=== PATIENT | female | born 1990 | race Caucasian/White ===

== ENCOUNTER 2016-07-22 12:33 | Emergency (ER) | payer OTHER ==
[~2016-07-22] VITALS: Ht 157.5 cm; Wt 60.5 kg
[~2016-07-22 12:33] MED LIST: ACET325T45 PO; ALBU8.5H3 INH; AZIT250T94 PO; BENZ100C70 PO; CETI10CA PO; CIPR500T4 PO; FLUT9.9S NASAL; IBUP-1542 PO; IBUP200C PO; NITR-58 PO; PHEN-537 PO; albuter
[2016-07-22 12:56] VITALS: Ht 157.5 cm; Wt 60.5 kg
[2016-07-22 13:41] LABS: BASOPHILS % 0.5 % (0.0-2.0); EOSINOPHILS # 0.1 10^3/ul (0.0-0.5); EOSINOPHILS % 1.6 % (0.0-7.0); HEMATOCRIT 40.2 % (37.0-47.0); HEMOGLOBIN 13.4 g/dl (12.0-16.0); LYMPHOCYTES # 1.8 10^3/ul (0.8-2.9); MEAN CORPUSCULAR HEMOGLOBIN 30.4 pg (29.0-33.0); MEAN CORPUSCULAR HGB CONC 33.5 g/dl (32.0-37.0); MEAN CORPUSCULAR VOLUME 90.8 fl (82.0-101.0); MONOCYTE # 0.7 10^3/ul (0.3-0.9); MONOCYTES % 9.9 % (0.0-11.0); NEUTROPHIL # 4.6 10^3/ul (1.6-7.5); PLATELET COUNT 323 10^3/UL (140-440); RED BLOOD COUNT 4.42 10^6/ul (4.20-5.40); UNCORRECTED WBC 7.3 10^3/ul (4.8-10.8); WHITE BLOOD COUNT 7.3 10^3/ul (4.8-10.8)
[2016-07-22 13:41] LABS: ADD UMIC YES; URINE BILIRUBIN (Dip) NEGATIVE (NEGATIVE); URINE BLOOD (Dip) NEGATIVE (NEGATIVE); URINE COLOR LT. YELLOW (YELLOW); URINE GLUCOSE (Dip) NEGATIVE (NEGATIVE); URINE KETONES (Dip) NEGATIVE (NEGATIVE); URINE LEUKOCYTE ESTERASE (Dip) 1+ (NEGATIVE); URINE NITRITE (Dip) NEGATIVE (NEGATIVE); URINE TOTAL PROTEIN (Dip) TRACE (NEGATIVE); URINE UROBILINOGEN (Dip) 0.2 E.U./dL (0.1-1.0)
[2016-07-22 13:44] LABS: CONDITION 1
[2016-07-22 13:55] LABS: BACTERIA,URINE FEW; SQUAMOUS EPITHELIAL CELL,UR FEW; URINE RBCS 0-2 /HPF (0)
[2016-07-22] MEDS ORDERED: PRENAT PO (15:44)
--- NOTE | 2016-07-22 15:47 | ERD ---
ER Documentation Chief Complaint Date/Time DATE: 07/22/16 TIME: 15:46 Chief Complaint ABD CRAMPING X1 WEEK. TOOK "PLAN B" ON 07/17 HPI This 26-year-old female complains of lower abdominal intermittent cramping for last week. Patient gives a history of last menstrual period approximate 6 weeks ago. Approximately 1 week ago she took Plan B for unprotected intercourse but then had a positive test shortly thereafter. She believes she was prior to taking the Plan B but did not know it. She denies any vaginal bleeding, fevers, vomiting. She is a G2 para 0. ROS All systems reviewed and are negative except as per history of present illness. Medications Home Meds Active Scripts Multivit/Min/Fol Ac/Iron/Pren* ( S*) 1 Tab Tab, 1 TAB PO DAILY, #100 TAB Prov:JOHN VALLES MD 07/22/16 Ibuprofen* (Motrin*) 600 Mg Tab, 600 MG PO Q6H Y for PAIN AND OR ELEVATED TEMP, #30 TAB Prov:REESE ALEXANDER NP 06/13/16 Cetirizine Hcl* (Zyrtec*) 10 Mg Capsule, 10 MG PO DAILY, #30 TAB.CHEW Prov:REESE ALEXANDER NP 06/13/16 Benzonatate* (Tessalon Perle*) 100 Mg Capsule, 100 MG PO Q8H Y for COUGH, #30 CAP Prov:REESE ALEXANDER NP 06/13/16 Fluticasone Propionate (Flonase Allergy Relief) 9.9 Ml [place].susp, 1 SPRAY NASAL BID, #1 BOTTLE TO EACH NOSTRIL Prov:REESE ALEXANDER NP 06/13/16 Ibuprofen* (Motrin*) 600 Mg Tab, 600 MG PO Q6, #20 TAB Prov:SHAINA SANDOVAL NP 05/07/16 Ibuprofen* (Motrin*) 600 Mg Tab, 600 MG PO Q6, #20 TAB Prov:ANGEL BYRD PA-C 02/11/16 Phenazopyridine Hcl* (Pyridium*) 100 Mg Tab, 100 MG PO TID Y for URINARY PAIN, # 6 TAB Prov:MADHAVI LAW PA-C 01/17/16 Nitrofurantoin Monohyd Macrocr* (Macrobid*) 100 Mg Capsr, 100 MG PO BID for 5 Days, CAP Prov:MADHAVI LAW PA-C 01/17/16 Ciprofloxacin Hcl* (Ciprofloxacin Hcl*) 500 Mg Tablet, 500 MG PO BID for 3 Days , TAB Prov:ANGEL BYRD PA-C 08/08/15 Albuterol Sulfate* (Proair HFA*) 8.5 Gm Hfa.aer.ad, 2 PUFF INH Q4, #1 INHALER Prov:ANGEL BYRD PA-C 08/08/15 [albuter] No Conflict Check Prov:ANGEL BYRD PA-C 08/08/15 Azithromycin* (Zithromax*) 250 Mg Tablet, 250 MG PO .ZPACK DIRECTED, #6 TAB TAKE 500 MG (2 TABS) THE FIRST DAY THEN 250 MG (1 TAB) DAYS 2-5 Prov:ANGEL BYRD PA-C 08/08/15 Reported Medications Ibuprofen* (Ibuprofen*) 200 Mg Capsule, 200 MG PO QID Y for FEVER, CAP 06/29/14 Acetaminophen* (Acetaminophen*) 325 Mg Tablet, 325 MG PO Q4H Y for FEVER, TAB 06/29/14 Allergies Allergies: Coded Allergies: No Known Allergies (Verified Allergy, Mild, 06/13/16) PMhx/Soc History of Surgery: Yes (appendectomy) Anesthesia Reaction: No Hx Neurological Disorder: No Hx Respiratory Disorders: No Hx Cardiac Disorders: No Hx Psychiatric Problems: No Hx Miscellaneous Medical Probl: No Hx Alcohol Use: No Hx Substance Use: No Hx Tobacco Use: No Physical Exam Vitals Vital Signs Date Time Temp Pulse Resp B/P Pulse Ox O2 Delivery O2 Flow Rate FiO2 07/22/16 12:56 98.6 75 16 108/70 99 Physical Exam Const: [] Alert, [id number]. Head: Atraumatic Eyes: Normal Conjunctiva ENT: Normal External Ears, Nose and Mouth. Neck: Full range of motion..~ No meningismus. Resp: Clear to auscultation bilaterally Cardio: Regular rate and rhythm, no murmurs Abd: Soft, non tender, non distended. Normal bowel sounds Skin: No petechiae or rashes Back: No midline or flank tenderness Ext: No cyanosis, or edema Neur: Awake and alert Psych: Normal Mood and Affect Result Diagram: 07/22/16 1328 Results 24 hrs Laboratory Tests Test 07/22/16 13:28 07/22/16 13:30 Basophils # 0.010^3/ul Basophils % 0.5% Beta HCG, Quantitative 6589.6mIU/ml Blood Morphology Comment Eosinophils # 0.110^3/ul Eosinophils % 1.6% Hematocrit 40.2% Hemoglobin 13.4g/dl Lymphocytes # 1.810^3/ul Lymphocytes % 25.0% Mean Corpuscular Hemoglobin 30.4pg Mean Corpuscular Hemoglobin Concent 33.5g/dl Mean Corpuscular Volume 90.8fl Mean Platelet Volume 7.0fl Monocytes # 0.710^3/ul Monocytes % 9.9% Neutrophils # 4.610^3/ul Neutrophils % 63.0% Nucleated Red Blood Cells # 0.010^3/ul Nucleated Red Blood Cells % 0.0/100WBC Platelet Count 68140^3/UL Red Blood Count 4.4210^6/ul Red Cell Distribution Width 13.0% White Blood Count 7.310^3/ul Urine Bacteria FEW Urine Bilirubin NEGATIVE Urine Clarity CLEAR Urine Color LT. YELLOW Urine Glucose NEGATIVE% Urine Hemoglobin NEGATIVE Urine Ketones NEGATIVE Urine Leukocyte Esterase 1+ Urine Microscopic RBC 0-2/HPF Urine Microscopic WBC 2-5/HPF Urine Nitrite NEGATIVE Urine Specific [place] 1.020 Urine Squamous Epithelial Cells FEW Urine Total Protein TRACE Urine Urobilinogen 0.2 E.U./dL Urine pH 7.5 Procedures/MDM Pelvic ultrasound shows approximately 5 week intrauterine gestational sac without pole or yolk sac and no heart tones. There is no evidence of adnexal . There is small bilateral ovarian cysts. Quantitative hCG is approximately 6000. Patient is Rh+. Patient has trace leukocytes on urine but only few bacteria. Patient was stable amatory throughout the ER course. Patient has early without visible heart tones. This may be due to early or early failed . There is no current signs or symptoms of ectopic or signs or symptoms to suggest acute abdomen, additional causes of lower abdominal cramping. Patient is advised to follow-up with OB or primary doctor this week otherwise she may repeat hormone level 2 days to evaluate . Patient should return sooner for worsening pain, bleeding, fevers, new worsening symptoms. Departure Diagnosis: Primary Impression: Abdominal pain Abdominal location: lower abdomen, unspecified Qualified Code: R10.30 - Lower abdominal pain Condition: Stable Patient Instructions: Abdominal Pain, Early Referrals: [facility] [address] [facility] [address] [place] [address] OFFICE FAX , [facility] [address] [place] [address] [facility] [address] [place] [address] [address] REAGAN, [facility] [address] [facility], [address], [facility] [address] [address] COLLIER, [facility] [address] [place] [address] [facility] [address] [place] [address] [facility] [address] - [place]N [address] [facility]. [address] [address] [address] [place], [place] [address] [facility]. [address], [facility] [address] [address] [facility] [address] [place], [place] [id number] Additional Instructions: There is a small sac approximately 5 weeks gestation visible but no heart rate visible. This may be due to early but should be monitored closely. Recommend recheck with this week consider a repeat laboratory work in 2 days. Return sooner for fevers, bleeding, new or worsening symptoms JOHN VALLES MD Jul 22, 2016 15:47
--- NOTE | 2016-07-22 19:19 | RADRPT ---
PROCEDURE: US OB. CLINICAL INDICATION: , vaginal bleeding and cramping TECHNIQUE: Transabdominal and transvaginal imaging of the pelvis was performed. Images are review ed on a high-resolution PACS workstation. COMPARISON: None available FINDINGS: Anechoic collection is identified within the endometrial cavity measuring 8 x 4 x 5 mm, possibly ear ly gestational sac. No structures are identified at this time. Collection size corresponds to a 5 weeks 1 day gestational age. Right ovary demonstrates multiple simple cysts measuring up to 3.7 cm. Left ovary is unremarkable. No ovarian torsion or solid adnexal mass is seen. Nonspecific mild amount of pelvic free fluid is present. IMPRESSION: 1. Possible early intrauterine gestational sac, as above. Viability cannot be confirmed at this ti me. Continued ultrasound follow-up is recommended. 2. Right ovary demonstrates simple cysts measuring up to 3.7 cm. 3. Nonspecific mild amount of pelvic free fluid is present. 4. No gross sonographic evidence to indicate ectopic gestation is seen at this time. RPTAT: QQ .Quincy Saha MD, MD Date Time Electronically viewed and signed by .Quincy Saha MD, on 07/22/2016 15:18 .R/
== END 2016-07-22 16:23 | disposition home or self-care (01) ==
LOC: FTE 12:33
DX: O26.891 Other specified pregnancy related conditions, first trimester (principal); R10.30 Lower abdominal pain, unspecified; Z3A.01 Less than 8 weeks gestation of pregnancy
CPT/HCPCS: 36415; 76801; 76817; 81001; 81003; 84702; 85025; 86900; 86901; Z7502

== ENCOUNTER 2016-08-16 10:33 | Emergency (ER) | payer OTHER ==
[~2016-08-16] VITALS: Wt 63.5 kg
[~2016-08-16 10:33] MED LIST changes: +PRENAT PO
[2016-08-16] MEDS ORDERED: ACETAMINOPHEN 325 MG TAB PO STA (11:23)
[2016-08-16] MEDS ORDERED: SOD CHLORIDE 0.9% 1,000 ML IV STA (11:23)
[2016-08-16] MEDS ORDERED: METOCLOPRAMIDE 10 MG INJ IV ONE (11:30)
[2016-08-16 12:13] LABS: BASOPHILS % 0.2 % (0.0-2.0); EOSINOPHILS % 0.6 % (0.0-7.0); HEMATOCRIT 36.4 % (37.0-47.0); HEMOGLOBIN 12.6 g/dl (12.0-16.0); LYMPHOCYTES # 1.9 10^3/ul (0.8-2.9); LYMPHOCYTES % 24.4 % (15.0-51.0); MEAN CORPUSCULAR HEMOGLOBIN 31.6 pg (29.0-33.0); MEAN CORPUSCULAR HGB CONC 34.7 g/dl (32.0-37.0); MEAN PLATELET VOLUME 7.7 fl (7.4-10.4); MONOCYTE # 0.7 10^3/ul (0.3-0.9); MONOCYTES % 8.7 % (0.0-11.0); NEUTROPHIL # 5.2 10^3/ul (1.6-7.5); NEUTROPHILS % 66.1 % (39.0-77.0); PLATELET COUNT 261 10^3/UL (140-440); RED CELL DISTRIBUTION WIDTH 12.5 % (11.5-14.5); UNCORRECTED WBC 7.9 10^3/ul (4.8-10.8); WHITE BLOOD COUNT 7.9 10^3/ul (4.8-10.8)
[2016-08-16 12:15] LABS: CONDITION 1
[2016-08-16 12:21] LABS: ADD UMIC YES; URINE BILIRUBIN (Dip) NEGATIVE (NEGATIVE); URINE BLOOD (Dip) TRACE (NEGATIVE); URINE COLOR LT. YELLOW (YELLOW); URINE GLUCOSE (Dip) NEGATIVE (NEGATIVE); URINE KETONES (Dip) NEGATIVE (NEGATIVE); URINE LEUKOCYTE ESTERASE (Dip) 1+ (NEGATIVE); URINE NITRITE (Dip) NEGATIVE (NEGATIVE); URINE TOTAL PROTEIN (Dip) NEGATIVE (NEGATIVE); URINE UROBILINOGEN (Dip) 0.2 E.U./dL (0.1-1.0)
[2016-08-16 12:26] LABS: ALBUMIN 3.9 g/dl (3.3-4.9)
[2016-08-16 12:27] LABS: POTASSIUM 3.8 mmol/L (3.5-5.1)
[2016-08-16 12:29] LABS: BILIRUBIN,INDIRECT 0.5 mg/dl (0-1.1); BILIRUBIN,TOTAL 0.5 mg/dl (0.2-1.3); CREATININE 0.51 mg/dl (0.44-1.00)
[2016-08-16 12:30] LABS: ALBUMIN/GLOBULIN RATIO 1.21; CALCIUM 9.1 mg/dl (8.4-10.2); TOTAL PROTEIN 7.1 g/dl (6.1-8.1)
[2016-08-16 13:03] LABS: BACTERIA,URINE MANY
--- NOTE | 2016-08-16 13:12 | RADRPT ---
PROCEDURE: US OB. CLINICAL INDICATION: Vaginal bleeding TECHNIQUE: Transabdominal imaging of the pelvis was performed. Images are reviewed on a high-reso [employer] PACS workstation. COMPARISON: Ultrasound, 07/22/2016 FINDINGS: Single intrauterine gestation is identified. heart rate is 166 bpm. [place]-rump length = 1.71 cm. Gestational age is 8 weeks 1 day and DOMINGUEZ is 03/27/2017 by ultrasound criteria. Gestational age is 9 weeks 2 days and DOMINGUEZ is 03/19/2017 by LMP. Right ovary demonstrates a 7.9 cm cyst. Left ovary is unremarkable. No ovarian torsion, solid adnexal mass or pelvic free fluid is identified. IMPRESSION: 1. Single live intrauterine with an estimated gestational age of 8 weeks 1 day by ultraso und criteria, as above. 2. Right ovary demonstrates a 7.9 cm simple-appearing cyst - on the prior ultrasound, this measured 3.7 cm. Continued sonographic follow-up is suggested. RPTAT: EE .Quincy Saha MD, MD Date Time Electronically viewed and signed by .Quincy Saha MD, on 08/16/2016 13:11 .R/
[2016-08-16] MEDS ORDERED: ACET500C5 PO (13:53)
[2016-08-16] MEDS ORDERED: METO10TA92 PO (13:53)
[2016-08-16 14:06] VITALS: BP 117/56; PULSE 76; RESP 16; TEMP 98.4
[2016-08-16] MEDS ORDERED: CEPH-443 PO (14:06)
--- NOTE | 2016-08-16 16:01 | ERD ---
ER Documentation Chief Complaint Date/Time DATE: 08/16/16 TIME: 15:57 Chief Complaint VOMITING FOR THE PAST FEW WKS. 9WKS PREG. MILD ABD PAIN. HEADACHE HPI This is a 26-year-old female who is a presents to the ED complaining of slight chest pain, diaphoresis, dizziness, hyperemesis that started intermittently 3 weeks ago. States that her [employer]SULTANT is Dr. Kirby. Denies any vaginal bleeding. Reports that she has some slight lower abdominal pain. Denies any wheezing, cough, fever, rashes. Patient reports that her last menses was on June 12, 2016. ROS All systems reviewed and are negative except as per history of present illness. Medications Home Meds Active Scripts Cephalexin* (Keflex*) 500 Mg Capsule, 500 MG PO QID for 7 Days, CAP Prov:OLY EMANUEL PA-C 08/16/16 Acetaminophen* (Tylophen*) 500 Mg Capsule, 1 CAP PO Q6H Y for PAIN AND OR ELEVATED TEMP, #20 CAP Prov:OLY EMANUEL PA-C 08/16/16 Metoclopramide* (Reglan*) 10 Mg Tablet, 10 MG PO Q6 Y for NAUSEA AND/OR VOMITING , #10 TAB Prov:OLY EMANUEL PA-C 08/16/16 Multivit/Min/Fol Ac/Iron/Pren* ( S*) 1 Tab Tab, 1 TAB PO DAILY, #100 TAB Prov:JOHN MCCAULEY MD 07/22/16 Ibuprofen* (Motrin*) 600 Mg Tab, 600 MG PO Q6H Y for PAIN AND OR ELEVATED TEMP, #30 TAB Prov:REESE ALEXANDER NP 06/13/16 Cetirizine Hcl* (Zyrtec*) 10 Mg Capsule, 10 MG PO DAILY, #30 TAB.CHEW Prov:REESE ALEXANDER NP 06/13/16 Benzonatate* (Tessalon Perle*) 100 Mg Capsule, 100 MG PO Q8H Y for COUGH, #30 CAP Prov:REESE ALEXANDER NP 06/13/16 Fluticasone Propionate (Flonase Allergy Relief) 9.9 Ml [place].susp, 1 SPRAY NASAL BID, #1 BOTTLE TO EACH NOSTRIL Prov:REESE ALEXANDER NP 06/13/16 Ibuprofen* (Motrin*) 600 Mg Tab, 600 MG PO Q6, #20 TAB Prov:SHAINA SANDOVALMilka PARTITION SETTER 05/07/16 Ibuprofen* (Motrin*) 600 Mg Tab, 600 MG PO Q6, #20 TAB Prov:ANGEL BYRD PA-C 02/11/16 Phenazopyridine Hcl* (Pyridium*) 100 Mg Tab, 100 MG PO TID Y for URINARY PAIN, # 6 TAB Prov:MADHAVI LAW PA-C 01/17/16 Nitrofurantoin Monohyd Macrocr* (Macrobid*) 100 Mg Capsr, 100 MG PO BID for 5 Days, CAP Prov:MADHAVI LAW PA-C 01/17/16 Ciprofloxacin Hcl* (Ciprofloxacin Hcl*) 500 Mg Tablet, 500 MG PO BID for 3 Days , TAB Prov:ANGEL BYRD PA-C 08/08/15 Albuterol Sulfate* (Proair HFA*) 8.5 Gm Hfa.aer.ad, 2 PUFF INH Q4, #1 INHALER Prov:ANGEL BYRD PA-C 08/08/15 [albuter] No Conflict Check Prov:ANGEL BYRD PA-C 08/08/15 Azithromycin* (Zithromax*) 250 Mg Tablet, 250 MG PO .ZPACK DIRECTED, #6 TAB TAKE 500 MG (2 TABS) THE FIRST DAY THEN 250 MG (1 TAB) DAYS 2-5 Prov:ANGEL BYRD PA-C 08/08/15 Reported Medications Ibuprofen* (Ibuprofen*) 200 Mg Capsule, 200 MG PO QID Y for FEVER, CAP 06/29/14 Acetaminophen* (Acetaminophen*) 325 Mg Tablet, 325 MG PO Q4H Y for FEVER, TAB 06/29/14 Allergies Allergies: Coded Allergies: No Known Allergies (Verified Allergy, Mild, 06/13/16) PMhx/Soc History of Surgery: Yes (appendectomy) Anesthesia Reaction: No Hx Neurological Disorder: No Hx Respiratory Disorders: No Hx Cardiac Disorders: No Hx Psychiatric Problems: No Hx Miscellaneous Medical Probl: No Hx Alcohol Use: No Hx Substance Use: No Hx Tobacco Use: No Physical Exam Vitals Vital Signs Date Time Temp Pulse Resp B/P Pulse Ox O2 Delivery O2 Flow Rate FiO2 08/16/16 14:06 98.4 76 16 117/56 99 Room Air 08/16/16 10:41 98.4 71 21 126/75 99 Physical Exam Const: [id number], well-nourished. In no acute distress. Head: Atraumatic, normocephalic Eyes: Normal Conjunctiva without injection. No purulent discharge. ENT: Normal external ear, nose. Moist oropharynx without tonsillar exudates. Non -erythematous pharynx. Uvula midline. No drooling. No trismus. Neck: No cervical midline tenderness. Full range of motion. No meningismus. No cervical lymphadenopathy. No JVD. Resp: Clear to auscultation bilaterally. No wheezing, rhonchi, rales, or crackles. No accessory muscle use. No retractions. Cardio: Regular rate and rhythm. No murmurs, rubs or gallops. Abd: Soft, slight lower pelvic tenderness, non distended. Normal bowel sounds. No palpable masses. No rebound tenderness. No guarding. Negative McBurney's point. Negative psoas sign. Negative obturator sign.. Skin: No petechiae or rashes Back: No midline tenderness. No CVA tenderness. Ext: No cyanosis, or edema. Neur: Awake and alert. Normal gait. Normal coordination. Psych: Normal Mood and Affect Result Diagram: 08/16/16 1130 08/16/16 1130 Results 24 hrs Laboratory Tests Test 08/16/16 11:30 Alanine Aminotransferase (ALT/SGPT) 18IU/L Albumin 3.9g/dl Albumin/Globulin Ratio 1.21 Alkaline Phosphatase 49IU/L Anion Gap 15 Aspartate Amino Transf (AST/SGOT) 21IU/L Basophils # 0.010^3/ul Basophils % 0.2% Beta HCG, Quantitative 436705.0mIU/ml Blood Urea Nitrogen 8mg/dl Calcium Level 9.1mg/dl Carbon Dioxide Level 25mmol/L Chloride Level 103mmol/L Creatinine 0.51mg/dl Direct Bilirubin 0.00mg/dl Eosinophils # 0.010^3/ul Eosinophils % 0.6% Globulin 3.20g/dl Glucose Level 63mg/dl Hematocrit 36.4% Hemoglobin 12.6g/dl Indirect Bilirubin 0.5mg/dl Lymphocytes # 1.910^3/ul Lymphocytes % 24.4% Mean Corpuscular Hemoglobin 31.6pg Mean Corpuscular Hemoglobin Concent 34.7g/dl Mean Corpuscular Volume 91.0fl Mean Platelet Volume 7.7fl Monocytes # 0.710^3/ul Monocytes % 8.7% Neutrophils # 5.210^3/ul Neutrophils % 66.1% Nucleated Red Blood Cells # 0.010^3/ul Nucleated Red Blood Cells % 0.0/100WBC Platelet Count 79281^3/UL Potassium Level 3.8mmol/L Red Blood Count 4.0010^6/ul Red Cell Distribution Width 12.5% Sodium Level 139mmol/L Total Bilirubin 0.5mg/dl Total Protein 7.1g/dl Urine Bacteria MANY Urine Bilirubin NEGATIVE Urine Clarity SLIGHTLY CLOUDY Urine Color LT. YELLOW Urine Epithelial Cells MODERATE Urine Glucose NEGATIVE% Urine Hemoglobin TRACE Urine Ketones NEGATIVE Urine Leukocyte Esterase 1+ Urine Microscopic RBC 5-10/HPF Urine Microscopic WBC 2-5/HPF Urine Nitrite NEGATIVE Urine Specific [place] 1.020 Urine Total Protein NEGATIVE Urine Urobilinogen 0.2 E.U./dL Urine pH 7.0 White Blood Count 7.910^3/ul Current Medications Medications (Trade) Dose Ordered Sig/[place] Route PRN Reason Start Time Stop Time Status Last Admin Dose Admin Sodium Chloride (NS) 1,000 ml @ 1,000 mls/hr Q1H STAT IV 08/16/16 11:23 08/16/16 12:22 DC 08/16/16 11:38 Acetaminophen (Tylenol Tab) 650 mg ONCE STAT PO 08/16/16 11:23 08/16/16 11:25 DC 08/16/16 11:39 Metoclopramide HCl (Reglan) 10 mg ONCE ONCE IV 08/16/16 11:30 08/16/16 11:31 DC 08/16/16 11:39 Procedures/MDM 26-year-old female with no significant past medical history presents the ED complaining of lower pelvic pain, hyperemesis, dizziness, shortness of breath, chest pain. Patient is afebrile and nontoxic-appearing. Patient is hemodynamically stable. An ultrasound, beta-hCG, CBC, type and RH, UA was ordered to evaluate patient. Patient states that she has loss of appetite, however since she has been treated with 1 L normal saline, 10 mg Reglan with improvement. Patient ate a sandwich here in the ED which increased patient's glucose. CBC: No evidence of severe infection or anemia CMP: No evidence of acidosis, alkalosis, DKA, renal or liver disease Urine: No elevation in nitrites, 1+ leukocyte esterase with WBC 2-5, hematuria. Rh: A positive. No indication for Rhogam at this time. beta Hc EKG reviewed and interpreted by Dr. Mccauley Rate/Rhythm: [80 bpm, Normal Sinus Rhythm] No ectopy, no ST elevations, normal axis. QRS, ST, T-waves: [No changes consistent w/ acute ischemia] Impression: [No evidence of ischemia or arrhythmia] PROCEDURE: US OB. CLINICAL INDICATION: Vaginal bleeding TECHNIQUE: Transabdominal imaging of the pelvis was performed. Images are reviewed on a high-resolution PACS workstation. COMPARISON: Ultrasound, 07/22/2016 FINDINGS: Single intrauterine gestation is identified. heart rate is 166 bpm. [place]-rump length = 1.71 cm. Gestational age is 8 weeks 1 day and DOMINGUEZ is 03/27/2017 by ultrasound criteria. Gestational age is 9 weeks 2 days and DOMINGUEZ is 03/19/2017 by LMP. Right ovary demonstrates a 7.9 cm cyst. Left ovary is unremarkable. No ovarian torsion, solid adnexal mass or pelvic free fluid is identified. IMPRESSION: 1. Single live intrauterine with an estimated gestational age of 8 weeks 1 day by ultrasound criteria, as above. 2. Right ovary demonstrates a 7.9 cm simple-appearing cyst - on the prior ultrasound, this measured 3.7 cm. Continued sonographic follow-up is suggested. Patient has a single IUP estimated to be 8 weeks, 1 day. There is also a increasing right cyst noted compared to her prior ultrasound. Low suspicion for symptomatic anemia, ectopic , sepsis, PID, appendicitis, ovarian torsion, tubo-ovarian abscess, surgical abdomen, or other emergent conditions. Patient was educated that there is a risk for threatened . Low suspicion for acute myocardial infarction, pneumothorax, pneumonia, cardiac tamponade, pulmonary embolism, AAA, aortic dissection, Boerhaave's syndrome, cardiac dysrhythmias,meningitis, intracranial bleed, seizure, stroke, TIA or other emergent conditions. Discharge vacations: Macrobid Patient to follow up with [employer] SEC[employer] CONSULTANT in 2 days for further evaluation and treatment. Patient is to return sooner to the ED for any worsening symptoms. Patient's questions were answered. Patient understood and agreed with discharge plan. Departure Diagnosis: Primary Impression: Abdominal pain during Trimester: first trimester Qualified Code: O26.891 - Abdominal pain during , first trimester Additional Impressions: Urinary tract infection Urinary tract infection type: site unspecified Hematuria presence: with hematuria Qualified Code: N39.0 - Urinary tract infection with hematuria, site unspecified Hyperemesis gravidarum Condition: Stable Patient Instructions: Urinary Tract Infections in Women, Abdominal Pain, Early , Hyperemesis Gravidarum Referrals: COMMUNITY CLINICS YOU HAVE RECEIVED A MEDICAL SCREENING EXAM AND THE RESULTS INDICATE THAT YOU DO NOT HAVE A CONDITION THAT REQUIRES URGENT TREATMENT IN THE EMERGENCY DEPARTMENT. FURTHER EVALUATION AND TREATMENT OF YOUR CONDITION CAN WAIT UNTIL YOU ARE SEEN IN YOUR DOCTORS OFFICE WITHIN THE NEXT 1-2 DAYS. IT IS YOUR RESPONSIBILITY TO MAKE AN APPOINTMENT FOR FOLOW-UP CARE. IF YOU HAVE A PRIMARY DOCTOR --you should call your primary doctor and schedule an appointment IF YOU DO NOT HAVE A PRIMARY DOCTOR YOU CAN CALL OUR PHYSICIAN REFERRAL HOTLINE AT IF YOU CAN NOT AFFORD TO SEE A PHYSICIAN YOU CAN CHOSE FROM THE FOLLOWING [facility] [address] [facility]. [facility] [address] [facility]. [facility] [address] [facility]. [facility] [address] [facility]. [facility] [address] [facility]. [facility]. [address] [facility]. [facility] YOU HAVE RECEIVED A MEDICAL SCREENING EXAM AND THE RESULTS INDICATE THAT YOU DO NOT HAVE A CONDITION THAT REQUIRES URGENT TREATMENT IN THE EMERGENCY DEPARTMENT. FURTHER EVALUATION AND TREATMENT OF YOUR CONDITION CAN WAIT UNTIL YOU ARE SEEN IN YOUR DOCTORS OFFICE WITHIN THE NEXT 1-2 DAYS. IT IS YOUR RESPONSIBILITY TO MAKE AN APPOINTMENT FOR FOLOW-UP CARE. IF YOU HAVE A PRIMARY DOCTOR --you should call your primary doctor and schedule and appointment IF YOU DO NOT HAVE A PRIMARY DOCTOR YOU CAN CALL OUR PHYSICIAN REFERRAL HOTLINE AT . IF YOU CAN NOT AFFORD TO SEE A PHYSICIAN YOU CAN CHOSE FROM THE FOLLOWING [facility] INSTITUTIONS: [facility] [address] [place] [address] [facility] [address] [place] [address] [facility] [address] [place] [address] [employer] [place] [address] [facility] [address] [place] [address] OFFICE FAX , [facility] [address] [place], [place] [id number] DR. [facility]YNHFORMERLY [facility] [address] [place] [address] DR REAGAN, [facility] [address] [facility], [address], [facility] [address] [address] [facility] [address] [place] [address] [facility] [address] [place] [address] [address] [facility] [address] - [place]ZM[place]N [address], [place] [address] [place] [address] [facility]. [address], [place] [address] TORIE MOLINA [address] [place], [place] [id number] [facility] Hours: 8:00 am - 5:00 pm Additional Instructions: FOLLOW UP WITH YOUR PRIMARY CARE PHYSICIAN TOMORROW. Return to this facility if you are not improving as expected. OLY EMANUEL PA-C Aug 16, 2016 16:01 OLY EMANUEL PA-C Aug 16, 2016 16:01
== END 2016-08-16 14:08 | disposition home or self-care (01) ==
LOC: FTE 10:33
DX: O26.891 Other specified pregnancy related conditions, first trimester (principal); O23.41 Unspecified infection of urinary tract in pregnancy, first trimester; R10.2 Pelvic and perineal pain; R10.30 Lower abdominal pain, unspecified; O21.0 Mild hyperemesis gravidarum; Z3A.08 8 weeks gestation of pregnancy
CPT/HCPCS: 36415; 76801; 80053; 81001; 84702; 85025; 86900; 86901; 93005; 96374; J2765; J7030; Z7502; Z7610; 81003

== ENCOUNTER 2016-08-31 15:11 | Emergency (ER) | payer OTHER ==
[~2016-08-31] VITALS: Wt 62.5 kg
[~2016-08-31 15:11] MED LIST changes: +ACET500C5 PO; +CEPH-443 PO; +METO10TA92 PO
[2016-08-31] MEDS ORDERED: ACET500C5 PO (15:51)
[2016-08-31] MEDS ORDERED: FLUT9.9S NASAL (15:51)
[2016-08-31] MEDS ORDERED: AMO500 PO (15:51)
--- NOTE | 2016-08-31 15:53 | ERD ---
ER Documentation Chief Complaint Date/Time DATE: 08/31/16 TIME: 15:51 Chief Complaint 10 WEEKS PREG L EAR PAIN HPI This 26-year-old female presents with left ear pain for last 3 days. She has had a cough congestion for last week. She denies fevers, abdominal pain or vaginal bleeding. She is 10 weeks by dates. ROS All systems reviewed and are negative except as per history of present illness. Medications Home Meds Active Scripts Amoxicillin* (Amoxicillin*) 500 Mg Cap, 500 MG PO TID for 10 Days, CAP Prov:JOHN VALLES MD 08/31/16 Fluticasone Propionate (Flonase Allergy Relief) 9.9 Ml [place].susp, 1 SPRAY NASAL DAILY for 10 Days, #1 BOTTLE TO EACH NOSTRIL Prov:JOHN VALLES MD 08/31/16 Acetaminophen* (Tylophen*) 500 Mg Capsule, 1 CAP PO Q6H Y for PAIN AND OR ELEVATED TEMP, #15 CAP Prov:JOHN VALLES MD 08/31/16 Cephalexin* (Keflex*) 500 Mg Capsule, 500 MG PO QID for 7 Days, CAP Prov:OLY EMANUEL PA-C 08/16/16 Acetaminophen* (Tylophen*) 500 Mg Capsule, 1 CAP PO Q6H Y for PAIN AND OR ELEVATED TEMP, #20 CAP Prov:OLY EMANUEL PA-C 08/16/16 Metoclopramide* (Reglan*) 10 Mg Tablet, 10 MG PO Q6 Y for NAUSEA AND/OR VOMITING , #10 TAB Prov:OLY EMANUEL PA-C 08/16/16 Multivit/Min/Fol Ac/Iron/Pren* ( S*) 1 Tab Tab, 1 TAB PO DAILY, #100 TAB Prov:JOHN VALLES MD 07/22/16 Ibuprofen* (Motrin*) 600 Mg Tab, 600 MG PO Q6H Y for PAIN AND OR ELEVATED TEMP, #30 TAB Prov:REESE ALEXANDER NP 06/13/16 Cetirizine Hcl* (Zyrtec*) 10 Mg Capsule, 10 MG PO DAILY, #30 TAB.CHEW Prov:REESE ALEXANDER NP 06/13/16 Benzonatate* (Tessalon Perle*) 100 Mg Capsule, 100 MG PO Q8H Y for COUGH, #30 CAP Prov:REESE ALEXANDER NP 06/13/16 Fluticasone Propionate (Flonase Allergy Relief) 9.9 Ml [place].susp, 1 SPRAY NASAL BID, #1 BOTTLE TO EACH NOSTRIL Prov:REESE ALEXANDER NP 06/13/16 Ibuprofen* (Motrin*) 600 Mg Tab, 600 MG PO Q6, #20 TAB Prov:SHAINA SANDOVAL NP 05/07/16 Ibuprofen* (Motrin*) 600 Mg Tab, 600 MG PO Q6, #20 TAB Prov:ANGEL BYRD PA-C 02/11/16 Phenazopyridine Hcl* (Pyridium*) 100 Mg Tab, 100 MG PO TID Y for URINARY PAIN, # 6 TAB Prov:MADHAVI LAW PA-C 01/17/16 Nitrofurantoin Monohyd Macrocr* (Macrobid*) 100 Mg Capsr, 100 MG PO BID for 5 Days, CAP Prov:MADHAVI LAW PA-C 01/17/16 Ciprofloxacin Hcl* (Ciprofloxacin Hcl*) 500 Mg Tablet, 500 MG PO BID for 3 Days , TAB Prov:ANGEL BYRD PA-C 08/08/15 Albuterol Sulfate* (Proair HFA*) 8.5 Gm Hfa.aer.ad, 2 PUFF INH Q4, #1 INHALER Prov:ANGEL BYRD PA-C 08/08/15 [albuter] No Conflict Check Prov:ANGEL BYRD PA-C 08/08/15 Azithromycin* (Zithromax*) 250 Mg Tablet, 250 MG PO .ZPACK DIRECTED, #6 TAB TAKE 500 MG (2 TABS) THE FIRST DAY THEN 250 MG (1 TAB) DAYS 2-5 Prov:ANGEL BYRD PA-C 08/08/15 Reported Medications Ibuprofen* (Ibuprofen*) 200 Mg Capsule, 200 MG PO QID Y for FEVER, CAP 06/29/14 Acetaminophen* (Acetaminophen*) 325 Mg Tablet, 325 MG PO Q4H Y for FEVER, TAB 06/29/14 Allergies Allergies: Coded Allergies: No Known Allergies (Verified Allergy, Mild, 06/13/16) PMhx/Soc Medical and Surgical Hx: pt denies Medical Hx History of Surgery: Yes (appendectomy) Anesthesia Reaction: No Hx Neurological Disorder: No Hx Respiratory Disorders: No Hx Cardiac Disorders: No Hx Psychiatric Problems: No Hx Miscellaneous Medical Probl: No Hx Alcohol Use: No Hx Substance Use: No Hx Tobacco Use: No Smoking Status: Never smoker Physical Exam Vitals Vital Signs Date Time Temp Pulse Resp B/P Pulse Ox O2 Delivery O2 Flow Rate FiO2 08/31/16 15:15 98.0 75 1 125/71 99 Physical Exam Const: [] Alert, [id number] per Head: Atraumatic Eyes: Normal Conjunctiva ENT: Normal External Ears, Nose and Mouth. Left TM is red and bulging . Neck: Full range of motion..~ No meningismus. Resp: Clear to auscultation bilaterally Cardio: Regular rate and rhythm, no murmurs Abd: Soft, non tender, non distended. Normal bowel sounds Skin: No petechiae or rashes Back: No midline or flank tenderness Ext: No cyanosis, or edema Neur: Awake and alert Psych: Normal Mood and Affect Procedures/MDM Patient presents with URI symptoms and signs of otitis media. She will treated with Flonase, amoxicillin and Tylenol. The patient was stable with no new complaints during the ER course. Clinically, there is no current evidence to suggest meningitis, sepsis, acute abdomen, pneumonia, acute coronary syndrome, pulmonary embolism, or any other emergent condition appearing to require further evaluation or hospitalization. The patient should certainly return for any new or worsening symptoms per the aftercare instructions. They should otherwise follow-up with her primary care doctor for reevaluation this week. Departure Diagnosis: Primary Impression: Otitis media Otitis media type: suppurative Laterality: left Chronicity: acute Recurrence: not specified as recurrent Spontaneous tympanic membrane rupture: without spontaneous rupture Qualified Code: H66.002 - Acute suppurative otitis media of left ear without spontaneous rupture of tympanic membrane, recurrence not specified Condition: Stable Patient Instructions: Otitis Media, Abx Tx (Adult) Additional Instructions: Recheck for new or worsening symptoms or with primary care doctor. JOHN VALLES MD Aug 31, 2016 15:53
== END 2016-08-31 16:48 | disposition home or self-care (01) ==
LOC: FTE 15:11
DX: O99.89 Other specified diseases and conditions complicating pregnancy, childbirth and the puerperium (principal); H66.002 Acute suppurative otitis media without spontaneous rupture of ear drum, left ear; Z3A.10 10 weeks gestation of pregnancy
CPT/HCPCS: 99283

== ENCOUNTER 2016-09-30 05:22 | Emergency (ER) | payer OTHER ==
[~2016-09-30] VITALS: Ht 157.5 cm; Wt 63.0 kg
[~2016-09-30 05:22] MED LIST changes: +AMO500 PO
[2016-09-30 05:24] VITALS: Ht 157.5 cm; Wt 63.0 kg
[2016-09-30] MEDS ORDERED: SOD CHLORIDE 0.9% 1,000 ML IV STA (06:23)
[2016-09-30] MEDS ORDERED: METOCLOPRAMIDE 10 MG INJ IV ONE (06:30)
[2016-09-30] MEDS ORDERED: DIPHENHYDRAMINE 50 MG INJ IV ONE (06:30)
[2016-09-30 06:52] LABS: ADD SCAN DIFF NO
[2016-09-30 07:01] LABS: ADD UMIC YES; URINE BILIRUBIN (Dip) NEGATIVE (NEGATIVE); URINE BLOOD (Dip) NEGATIVE (NEGATIVE); URINE COLOR LT. YELLOW (YELLOW); URINE GLUCOSE (Dip) NEGATIVE (NEGATIVE); URINE KETONES (Dip) NEGATIVE (NEGATIVE); URINE LEUKOCYTE ESTERASE (Dip) 1+ (NEGATIVE); URINE NITRITE (Dip) NEGATIVE (NEGATIVE); URINE TOTAL PROTEIN (Dip) NEGATIVE (NEGATIVE); URINE UROBILINOGEN (Dip) 0.2 E.U./dL (0.1-1.0)
[2016-09-30 07:02] LABS: BASOPHILS % 0.2 % (0.0-2.0); EOSINOPHILS # 0.1 10^3/ul (0.0-0.5); EOSINOPHILS % 0.7 % (0.0-7.0); HEMATOCRIT 35.8 % (37.0-47.0); HEMOGLOBIN 12.1 g/dl (12.0-16.0); LYMPHOCYTES # 1.7 10^3/ul (0.8-2.9); MEAN CORPUSCULAR HEMOGLOBIN 30.9 pg (29.0-33.0); MEAN CORPUSCULAR HGB CONC 33.8 g/dl (32.0-37.0); MEAN CORPUSCULAR VOLUME 91.3 fl (82.0-101.0); MONOCYTE # 0.6 10^3/ul (0.3-0.9); NEUTROPHIL # 6.1 10^3/ul (1.6-7.5); NEUTROPHILS % 71.5 % (39.0-77.0); PLATELET COUNT 262 10^3/UL (140-415); RED BLOOD COUNT 3.92 10^6/ul (4.20-5.40); RED CELL DISTRIBUTION WIDTH 13.4 % (11.5-14.5); WHITE BLOOD COUNT 8.5 10^3/ul (4.8-10.8)
[2016-09-30 07:15] LABS: BACTERIA,URINE FEW; SQUAMOUS EPITHELIAL CELL,UR MODERATE; URINE RBCS NONE SEEN /HPF (0)
[2016-09-30 07:32] LABS: ALBUMIN 3.6 g/dl (3.3-4.9); ALBUMIN/GLOBULIN RATIO 1.16; BILIRUBIN,INDIRECT 0.7 mg/dl (0-1.1); BILIRUBIN,TOTAL 0.7 mg/dl (0.2-1.3); CALCIUM 8.9 mg/dl (8.4-10.2); CREATININE 0.44 mg/dl (0.44-1.00); TOTAL PROTEIN 6.7 g/dl (6.1-8.1)
[2016-09-30] MEDS ORDERED: NITR-58 PO (07:37)
[2016-09-30] MEDS ORDERED: METO5TAB2 PO (07:37)
--- NOTE | 2016-09-30 07:47 | RADRPT ---
PROCEDURE: ULTRASOUND OBSTETRICAL CLINICAL INDICATION: 26-year-old female with pelvic pain and vomiting. TECHNIQUE: Multiple sonographic images of the pelvis were obtained. The images were reviewed on a PACS workstation. COMPARISON: No prior studies are available for comparison. FINDINGS: The right ovary was not visualized. The left ovary is identified and measures approximately 2.4 x 1 .4 x 2.1 cm. There is normal flow within the left ovary. The cervix is closed with a length of 3.0 cm. There is a single viable intrauterine gestation. Card iac activity is present with 152 beats per minute. There is a variable presentation. Measurements we re made in order to determine age. The results are as follows: BPD = 3.00 cm, HC = 11.24 cm, AC = 10.05 cm, FL = 1.70 cm. This yields and estimated gestational ag e of approximately 15 weeks 3 days. The estimated date of delivery is March 21, 2017. The EFW = 1 27 +/- 19 g. The GP is 29%. The placenta is posterior. There is no evidence for an abruption or placenta previa. There is an adequate amount of amniotic fluid with the maximal vertical pocket measuring 4.3 cm. IMPRESSION: 1. Single viable intrauterine gestation of approximately 15 weeks 3 days. The estimated date of de livery is March 17, 2017. 2. The cervix appears closed with a length of 3.0 cm. .Sahil Aaron MD, MD Date Time Electronically viewed and signed by .Sahil Aaron MD, MD on 09/30/2016 07:47 .M/
--- NOTE | 2016-09-30 08:39 | ERD ---
ER Documentation Chief Complaint Date/Time DATE: 09/30/16 TIME: 08:34 Chief Complaint vomiting since last night. states 16 weeks HPI 26-year-old female who is approximately 15 weeks comes in with nausea vomiting that started yesterday. She states that was nonbloody nonbilious emesis, without any fevers. She states she has had suprapubic abdominal pain. She denies vaginal bleeding. She states this occurred after eating fish tacos. ROS All systems reviewed and are negative except as per history of present illness. Medications Home Meds Active Scripts Nitrofurantoin Monohyd Macrocr* (Macrobid*) 100 Mg Capsr, 100 MG PO BID for 7 Days, CAP Prov:ANGEL BYRD PA-C 09/30/16 Metoclopramide Hcl (Reglan) 5 Mg Tab, 5 MG PO Q6H, #12 TAB Prov:ANGEL BYRD PA-C 09/30/16 Amoxicillin* (Amoxicillin*) 500 Mg Cap, 500 MG PO TID for 10 Days, CAP Prov:JOHN VALLES MD 08/31/16 Fluticasone Propionate (Flonase Allergy Relief) 9.9 Ml [place].susp, 1 SPRAY NASAL DAILY for 10 Days, #1 BOTTLE TO EACH NOSTRIL Prov:JOHN VALLES MD 08/31/16 Acetaminophen* (Tylophen*) 500 Mg Capsule, 1 CAP PO Q6H Y for PAIN AND OR ELEVATED TEMP, #15 CAP Prov:JOHN VALLES MD 08/31/16 Cephalexin* (Keflex*) 500 Mg Capsule, 500 MG PO QID for 7 Days, CAP Prov:OLY EMANUEL PA-C 08/16/16 Acetaminophen* (Tylophen*) 500 Mg Capsule, 1 CAP PO Q6H Y for PAIN AND OR ELEVATED TEMP, #20 CAP Prov:OLY EMANUEL PA-C 08/16/16 Metoclopramide* (Reglan*) 10 Mg Tablet, 10 MG PO Q6 Y for NAUSEA AND/OR VOMITING , #10 TAB Prov:OLY EMANUEL PA-C 08/16/16 Multivit/Min/Fol Ac/Iron/Pren* ( S*) 1 Tab Tab, 1 TAB PO DAILY, #100 TAB Prov:JOHN VALLES MD 07/22/16 Ibuprofen* (Motrin*) 600 Mg Tab, 600 MG PO Q6H Y for PAIN AND OR ELEVATED TEMP, #30 TAB Prov:REESE ALEXANDER NP 06/13/16 Cetirizine Hcl* (Zyrtec*) 10 Mg Capsule, 10 MG PO DAILY, #30 TAB.CHEW Prov:REESE ALEXANDER NP 06/13/16 Benzonatate* (Tessalon Perle*) 100 Mg Capsule, 100 MG PO Q8H Y for COUGH, #30 CAP Prov:REESE ALEXANDER NP 06/13/16 Fluticasone Propionate (Flonase Allergy Relief) 9.9 Ml [place].susp, 1 SPRAY NASAL BID, #1 BOTTLE TO EACH NOSTRIL Prov:REESE ALEXANDER NP 06/13/16 Ibuprofen* (Motrin*) 600 Mg Tab, 600 MG PO Q6, #20 TAB Prov:SHAINA SANDOVAL NP 05/07/16 Ibuprofen* (Motrin*) 600 Mg Tab, 600 MG PO Q6, #20 TAB Prov:ANGEL BYRD PA-C 02/11/16 Phenazopyridine Hcl* (Pyridium*) 100 Mg Tab, 100 MG PO TID Y for URINARY PAIN, # 6 TAB Prov:MADHAVI LAW PA-C 01/17/16 Nitrofurantoin Monohyd Macrocr* (Macrobid*) 100 Mg Capsr, 100 MG PO BID for 5 Days, CAP Prov:MADHAVI LAW PA-C 01/17/16 Ciprofloxacin Hcl* (Ciprofloxacin Hcl*) 500 Mg Tablet, 500 MG PO BID for 3 Days , TAB Prov:ANGEL BYRD PA-C 08/08/15 Albuterol Sulfate* (Proair HFA*) 8.5 Gm Hfa.aer.ad, 2 PUFF INH Q4, #1 INHALER Prov:ANGEL BYRD PA-C 08/08/15 [albuter] No Conflict Check Prov:ANGEL BYRD PA-C 08/08/15 Azithromycin* (Zithromax*) 250 Mg Tablet, 250 MG PO .ZPACK DIRECTED, #6 TAB TAKE 500 MG (2 TABS) THE FIRST DAY THEN 250 MG (1 TAB) DAYS 2-5 Prov:ANGEL BYRD PA-C 08/08/15 Reported Medications Ibuprofen* (Ibuprofen*) 200 Mg Capsule, 200 MG PO QID Y for FEVER, CAP 06/29/14 Acetaminophen* (Acetaminophen*) 325 Mg Tablet, 325 MG PO Q4H Y for FEVER, TAB 06/29/14 Allergies Allergies: Coded Allergies: No Known Allergies (Verified Allergy, Mild, 09/30/16) PMhx/Soc History of Surgery: No Anesthesia Reaction: No Hx Neurological Disorder: No Hx Respiratory Disorders: No Hx Cardiac Disorders: No Hx Psychiatric Problems: No Hx Miscellaneous Medical Probl: No Hx Alcohol Use: No Hx Substance Use: No Hx Tobacco Use: No Smoking Status: Never smoker Physical Exam Vitals Vital Signs Date Time Temp Pulse Resp B/P Pulse Ox O2 Delivery O2 Flow Rate FiO2 09/30/16 05:24 97.6 88 20 119/57 99 Physical Exam General: Well-developed, well-nourished. The patient appears in no acute distress. HEENT: Head is normocephalic, atraumatic. No scleral icterus. Neck: Supple. Nontender. Lungs: Clear to auscultation. Normal air movement. Heart: Regular rate and rhythm. S1 and S2 are normal. No murmurs, gallops, or rubs. Abdomen: Soft, nontender, nondistended. Bowel sounds are normoactive. Extremities: No clubbing or cyanosis. Normal pulses. Moving extremities x 4. No weakness. Neurologic: Alert and oriented 3. No focal deficits. Skin: Normal turgor. No rash or lesions. Result Diagram: 09/30/16 0640 09/30/16 0640 Results 24 hrs Laboratory Tests Test 09/30/16 06:40 Alanine Aminotransferase (ALT/SGPT) 12IU/L Albumin 3.6g/dl Albumin/Globulin Ratio 1.16 Alkaline Phosphatase 58IU/L Anion Gap 16 Aspartate Amino Transf (AST/SGOT) 23IU/L Basophils # 0.010^3/ul Basophils % 0.2% Beta HCG, Quantitative 21335.0mIU/ml Blood Urea Nitrogen 10mg/dl Calcium Level 8.9mg/dl Carbon Dioxide Level 22mmol/L Chloride Level 105mmol/L Creatinine 0.44mg/dl Direct Bilirubin 0.00mg/dl Eosinophils # 0.110^3/ul Eosinophils % 0.7% Globulin 3.10g/dl Glucose Level 87mg/dl Hematocrit 35.8% Hemoglobin 12.1g/dl Indirect Bilirubin 0.7mg/dl Lipase 161U/L Lymphocytes # 1.710^3/ul Lymphocytes % 20.0% Mean Corpuscular Hemoglobin 30.9pg Mean Corpuscular Hemoglobin Concent 33.8g/dl Mean Corpuscular Volume 91.3fl Mean Platelet Volume 9.0fl Monocytes # 0.610^3/ul Monocytes % 7.0% Neutrophils # 6.110^3/ul Neutrophils % 71.5% Nucleated Red Blood Cells # 0.010^3/ul Nucleated Red Blood Cells % 0.0/100WBC Platelet Count 71483^3/UL Potassium Level 4.0mmol/L Red Blood Count 3.9210^6/ul Red Cell Distribution Width 13.4% Sodium Level 139mmol/L Total Bilirubin 0.7mg/dl Total Protein 6.7g/dl Urine Bacteria FEW Urine Bilirubin NEGATIVE Urine Clarity CLEAR Urine Color LT. YELLOW Urine Glucose NEGATIVE% Urine Hemoglobin NEGATIVE Urine Ketones NEGATIVE Urine Leukocyte Esterase 1+ Urine Microscopic RBC NONE SEEN/HPF Urine Microscopic WBC 2-5/HPF Urine Nitrite NEGATIVE Urine Specific [place] 1.015 Urine Squamous Epithelial Cells MODERATE Urine Total Protein NEGATIVE Urine Urobilinogen 0.2 E.U./dL Urine pH 7.0 White Blood Count 8.510^3/ul Current Medications Medications (Trade) Dose Ordered Sig/[place] Route PRN Reason Start Time Stop Time Status Last Admin Dose Admin Sodium Chloride (NS) 1,000 ml @ 1,000 mls/hr Q1H STAT IV 09/30/16 06:23 09/30/16 07:22 DC 09/30/16 06:49 Metoclopramide HCl (Reglan) 10 mg ONCE ONCE IV 09/30/16 06:30 09/30/16 06:31 DC 09/30/16 06:49 Diphenhydramine HCl (Benadryl) 25 mg ONCE ONCE IV 09/30/16 06:30 09/30/16 06:31 DC 09/30/16 06:49 Procedures/MDM ED course: She was given a liter of normal saline IV, Benadryl 25 mg and Reglan 10 mg IV. She did not have any episodes of emesis here and reports to be feeling better at this time. MDM: 26-year-old female who is in her second trimester presents with a single live intrauterine at approximately 15 weeks, she also comes in with nausea vomiting for the past 1 day. She states that this happened after eating fish tacos, given that she is in her second trimester this is likely foodborne related. She does not have any clinical signs of dehydration or electrolyte abnormalities. No signs of an acute surgical abdominal process, or ectopic . She has been advised to follow-up with her SENIOR MECHANICAL DEVELOPMENT ENGINEER in the next 3 days. Departure Diagnosis: Primary Impression: Second trimester Additional Impression: Vomiting Condition: Good Patient Instructions: Adapting to : Second Trimester, Vomiting (6Y- Adult) Additional Instructions: Patient was advised to follow-up with their OB in 3-4 days for a recheck examination. If they were to develop any worsening symptoms sooner, including heavy vaginal bleeding or pelvic pain, they are to return to the ER for further evaluation. ANGEL BYRD PA-C Sep 30, 2016 08:39
[2016-09-30 08:42] VITALS: BP 100/58; PULSE 84; RESP 20; TEMP 98.3
== END 2016-09-30 08:44 | disposition home or self-care (01) ==
LOC: FTE 05:22
DX: O21.9 Vomiting of pregnancy, unspecified (principal); R10.2 Pelvic and perineal pain; Z3A.16 16 weeks gestation of pregnancy
CPT/HCPCS: 36415; 76805; 80053; 81001; 83690; 84702; 85025; 86900; 86901; 87880; 96374; 96375; J1200; J2765; J7030; Z7502; 81003

== ENCOUNTER 2016-12-10 14:01 | Outpatient (CLI) | payer OTHER ==
[~2016-12-10] VITALS: Ht 157.5 cm; Wt 72.1 kg
[~2016-12-10 14:01] MED LIST changes: +METO5TAB2 PO
[2016-12-10 14:11] VITALS: BP 115/58; PULSE 95; RESP 18
[2016-12-10 14:12] VITALS: Ht 157.5 cm; Wt 72.1 kg
--- NOTE | 2016-12-10 15:49 | PN ---
Date/Time of Note Date/Time of Note DATE: 12/10/16 TIME: 15:46 OB Subjective Subjective Subjective Patient is a 26-year-old 3 para 1 at 25+6 weeks of gestation She presents with a chief complaint of leaking fluid Patient reports positive movement, no contractions, no vaginal bleeding Patient has care with Dr. Marcus OB Objective Objective Objective Nitrazine test negative Rupture of membrane test negative HEENT: WNL Heart: Rhythm Normal Lungs: Clear, Equal Abdomen: WNL Extremities: Normal Reflexes: Normal Cervical Dilatation: None Heart Rate: 140's Accelerations: Accelerations Present Decelerations: No Decelerations OB Assessment/Plan Other Assessment: 25+6 weeks of gestation rule out PPROM Other plan: We will send for urinalysis We will obtain complete OB ultrasound/COREY check DOROTHY GAN MD December 10, 2016 15:49
--- NOTE | 2016-12-10 16:23 | RADRPT ---
PROCEDURE: OB ultrasound for Biophysical Profile. CLINICAL INDICATION: . Leaking fluid. TECHNIQUE: Multiple sonographic images of the gravid uterus were obtained. COMPARISON: 09/30/2016. FINDINGS: There is a single live intrauterine in breech presentation with heart motion of 144 beats per minute. COREY is 14.94 cm, which is within normal limits. The cervix is closed and measure s 4.9 cm in length. The placenta is located within the fundus and is without evidence of previa or abruption. Biophysical profile is as follows: Movement: 2 Tone:2 Breathin Fluid:2 IMPRESSION: Normal biophysical profile. RPTAT: HLST .Katharina Burgos MD, Date Time Electronically viewed and signed by .Katharina Burgos MD, on 12/10/2016 16:23 .T/
[2016-12-10 16:25] LABS: ADD UMIC YES; URINE BILIRUBIN (Dip) NEGATIVE (NEGATIVE); URINE BLOOD (Dip) NEGATIVE (NEGATIVE); URINE COLOR LT. YELLOW (YELLOW); URINE GLUCOSE (Dip) NEGATIVE (NEGATIVE); URINE KETONES (Dip) NEGATIVE (NEGATIVE); URINE LEUKOCYTE ESTERASE (Dip) 1+ (NEGATIVE); URINE NITRITE (Dip) NEGATIVE (NEGATIVE); URINE TOTAL PROTEIN (Dip) NEGATIVE (NEGATIVE); URINE UROBILINOGEN (Dip) 0.2 E.U./dL (0.1-1.0)
[2016-12-10 16:31] LABS: BACTERIA,URINE MODERATE; URINE RBCS 0-2 /HPF (0)
--- NOTE | 2016-12-10 17:11 | TRIAGE ---
OB Triage Datetime Report Generated by CPN: 12/10/2016 17:11 Datetime: 12/10/2016 16:02 Labor Evaluation Frequency: 0 Monitor Mode: External Pattern: Normal: <= 5 Contractions in 10 Minutes Resting Tone [place]: Relaxed Heart Rate FHR Baseline Rate: 140 Monitor Mode: External US Variability: Moderate 6-25 bpm Accelerations: 10X10 Decelerations: None Category: Category I Datetime: 12/10/2016 14:29 Labor Evaluation Frequency: 0 Monitor Mode: External Pattern: Normal: <= 5 Contractions in 10 Minutes Resting Tone [place]: Relaxed Heart Rate FHR Baseline Rate: 140 Monitor Mode: External US Variability: Moderate 6-25 bpm Accelerations: 10X10 Decelerations: None Category: Category I Datetime: 12/10/2016 14:09 Assessment Type: Admission Assessment Maternal Assessment Level of Consciousness: Fully Conscious DTR's/Clonus: DTRs 2+; No Clonus Headache: Denies Blurred Vision: No Respiratory Effort: Unlabored; Regular Rhythm; Equal Expansion Breath Sounds, Left: Clear and Equal Breath Sounds, Right: Clear and Equal Nausea/Vomiting: Denies RUQ Epigastric Pain: Denies Lower Extremities Edema: None Degree: None Upper Extremities Edema: None Degree: None Facial Edema: None Fall Risk Assessment History of Falling: (0) No Secondary Diagnosis: (0) No Ambulatory Aid: (0) Bedrest/Nurse Assist IV Therapy: (0) No Gait: (0) Normal/Bedrest/Immobile Mental Status: (0) Oriented to Own Ability Fall Score: 0 Fall Risk Score Definition: No Risk: No action required Datetime: 12/10/2016 14:08 EGA: 25.6 Datetime: 12/10/2016 14:02 Stage of : OB Triage Pain Assessment Pain Scale: 2 Pain Presence: Intermittent Pain Type: Ache Pain Location: Back Pain Relief Measures: Comfort Measures Datetime: 12/10/2016 13:45 Time of Arrival: 12/10/2016 13:45 Arrived By: Ambulatory Arrived From: Home Chief Complaint: LEAKING CLEAR VAGINAL FLUID SINCE 12/07 AT 0900 Movement: Present Rupture of Membranes: Unsure Vaginal Bleeding: None Vaginal Discharge: Denies Recent Sexual Intercouse: Denies Abdominal Trauma: Not Applicable Patient Complaints: None Time Provider Notified: 12/10/2016 15:26 Provider Notified: OLIVIA Initial Plan: TOCO/ US, NITROZINE NEGATIVE, ROM + NEGATIVE, BPP, COREY, U/A
--- NOTE | 2016-12-10 17:29 | TRIAGE ---
OB Triage Datetime Report Generated by CPN: 12/10/2016 17:29 Datetime: 12/10/2016 17:11 Frequency: 0 Monitor Mode: External Pattern: Normal: <= 5 Contractions in 10 Minutes Resting Tone [place]: Relaxed FHR Baseline Rate: 140 Monitor Mode: External US Variability: Moderate 6-25 bpm Accelerations: 10X10 Decelerations: None Category: Category I Pain Presence: None/Denies Datetime: 12/10/2016 13:45 Contractions: Denies/Absent Initial Plan: TOCO/ US, NITROZINE NEGATIVE, ROM + NEGATIVE, BPP-8/8, COREY- 14.94CM, BREECH PRESENTA TION. U/A-NEG WITH 1+ [place]
== END 2016-12-10 17:30 | disposition home or self-care (01) ==
LOC: OBT 14:01 → L-D 14:02 → OBT 17:30
PROVIDERS: ATTEND Specialist
DX: O42.912 Preterm premature rupture of membranes, unspecified as to length of time between rupture and onset of labor, second trimester (principal); Z3A.25 25 weeks gestation of pregnancy
CPT/HCPCS: 76818; 81001; 84112; Z7500; G0463

== ENCOUNTER 2017-03-04 20:00 | Inpatient (IN) | payer OTHER ==
[~2017-03-04] VITALS: Ht 162.6 cm; Wt 71.0 kg
[~2017-03-04 20:00] MED LIST changes: -ACET325T45 PO; -ACET500C5 PO; -ALBU8.5H3 INH; -AMO500 PO; -AZIT250T94 PO; -BENZ100C70 PO; -CEPH-443 PO; -CETI10CA PO; -CIPR500T4 PO; -FLUT9.9S NASAL; -IBUP-1542 PO; -IBUP200C PO; -METO10TA92 PO; -METO5TAB2 PO; -NITR-58 PO; -PHEN-537 PO; -albuter
[2017-03-04 23:27] VITALS: Ht 162.6 cm; Wt 71.0 kg
[2017-03-04] MEDS ORDERED: OXYTOCIN 30 UNITS/LR 500 ML IV PRN (23:30)
[2017-03-04] MEDS ORDERED: BUTORPHANOL 2 MG INJ IV PRN (23:30)
[2017-03-04] MEDS ORDERED: LACTATED RINGER'S 1,000 ML IV PRN (23:30)
[2017-03-04] MEDS ORDERED: CARBOPROST 250 MCG INJ IM PRN (23:30)
[2017-03-04] MEDS ORDERED: METHYLERGONOVINE 0.2 MG INJ IM PRN (23:30)
[2017-03-04] MEDS ORDERED: MINERAL OIL LIGHT 10 ML VIAL TOP PRN (23:30)
[2017-03-04] MEDS ORDERED: HYDROCODONE/APAP (5/325) TAB PO PRN (23:30)
[2017-03-04] MEDS ORDERED: LIDOCAINE 1% (MPF) 30 ML INJ INJ PRN (23:30)
[2017-03-04] MEDS ORDERED: IBUPROFEN 600 MG TAB PO PRN (23:30)
[2017-03-04] MEDS ORDERED: MISOPROSTOL 200 MCG TAB PR PRN (23:30)
[2017-03-04] MEDS ORDERED: OXYTOCIN 30 UNITS/LR 500 ML IV SCH ×2 (23:30)
[2017-03-05 00:19] LABS: INR 0.93; PARTIAL THROMBOPLASTIN TIME 24.6 Sec (25.0-35.0); PROTIME 12.5 Sec (12.2-14.2)
[2017-03-05 00:21] LABS: BASOPHILS % 0.2 % (0.0-2.0); EOSINOPHILS # 0.1 10^3/ul (0.0-0.5); EOSINOPHILS % 0.8 % (0.0-7.0); HEMATOCRIT 29.4 % (37.0-47.0); HEMOGLOBIN 9.6 g/dl (12.0-16.0); LYMPHOCYTES # 2.1 10^3/ul (0.8-2.9); LYMPHOCYTES % 20.6 % (15.0-51.0); MEAN CORPUSCULAR HEMOGLOBIN 28.2 pg (29.0-33.0); MEAN CORPUSCULAR HGB CONC 32.7 g/dl (32.0-37.0); MEAN CORPUSCULAR VOLUME 86.2 fl (82.0-101.0); MEAN PLATELET VOLUME 9.8 fl (7.4-10.4); MONOCYTES % 9.5 % (0.0-11.0); NEUTROPHILS % 67.4 % (39.0-77.0); PLATELET COUNT 260 10^3/UL (140-415); RED BLOOD COUNT 3.41 10^6/ul (4.20-5.40); RED CELL DISTRIBUTION WIDTH 13.6 % (11.5-14.5); WHITE BLOOD COUNT 10.2 10^3/ul (4.8-10.8)
[2017-03-05] MEDS: LACTATED RINGER'S 1,000 ML IV SCH ×5 (00:58→23:55)
[2017-03-05] MEDS: OXYTOCIN 30 UNITS/LR 500 ML IV SCH (02:49)
--- NOTE | 2017-03-06 00:29 | HP ---
Date/Time of Note Date/Time of Note DATE: 03/06/17 TIME: 00:21 OB - History Hx of Present Free Text/Dictation Pt is a 26yo at 38+1 admitted at 38+0 for IOL in the setting of total body itching and concern for cholestasis of . Pt states her itching has been ongoing for several weeks although she only recently mentioned it. Itching mainly on back of the head, middle of the abdomen, palms and soles. At the time of admission, pt states she was feeling normal FM, denied LOF or VB. Pt states she was feeling contractions. o/w uncomplicated. Pt received care with Dr. Marcsu. Estimated Due Date: Mar 19, 2017 : 3 Para: 1 Care: Good Care Obstetrical Complications: Other (Body itching c/f ICP) Medical Complications: None Past Family/Social History * Past Medical, Surgical, Family and Obstetric Histories reviewed from chart. Blood Type: A+ Rubella: not immune (Equivocal- needs MMR ) RPR/VDRL: Negative GBS Status: Negative HBsAG: Negative OB Admission Exam Vital Signs Vital Signs Most recent vitals 98.2 104/58 80 Physical Exam HEENT: WNL Heart: Rhythm Normal Lungs: Clear Abdomen: WNL Extremities: Normal Cervical Dilatation: 2cm (2-3cm, now 4/70/-2) Effacement: Other (70%) Station: -2 Membranes: Intact Heart Rate: 140's Accelerations: Accelerations Present Decelerations: No Decelerations Varibility: Moderate Contractions on Admission: < 5 Minutes Apart Last 72 hours Lab Results CBC & BMP 03/04/17 23:30 OB Assessment/Plan Reason for admission: induction of labor Plan: Induction Induction Method: per Pitocin Protocol Other plan: Scheduled admission for IOL 2/2 concern for possible ICP at 38+0wks GA IOL with Pitocin GBS neg thus ppx not indicated FWB reassuring, CEFRand and RONI Woodruff MD Mar 06, 2017 00:29
[2017-03-06] MEDS: OXYTOCIN 30 UNITS/LR 500 ML IV SCH (02:35)
[2017-03-06] MEDS: LACTATED RINGER'S 1,000 ML IV SCH ×3 (08:24→22:51)
--- NOTE | 2017-03-06 19:34 | QN ---
Documentation Comment NST is reassuring no cervical change 4 cm 70% and -2 AROM Clear TORIE BAKER MD Mar 06, 2017 19:34
[2017-03-06] MEDS ORDERED: CITRIC ACID/NA CITRATE 30 ML CUP ONE (19:55)
[2017-03-06] MEDS ORDERED: LACTATED RINGER'S 1,000 ML IV ONE (19:55)
[2017-03-06] MEDS ORDERED: ONDANSETRON 4 MG INJ ONE (19:56)
[2017-03-06] MEDS ORDERED: morphine 4 MG/ML VIAL IV PRN (20:00)
[2017-03-06] MEDS ORDERED: ONDANSETRON 4 MG INJ IV ONE (20:00)
[2017-03-06] MEDS ORDERED: DIPHENHYDRAMINE 50 MG INJ IV PRN (20:00)
[2017-03-06] MEDS ORDERED: NALBUPHINE HCL (10 MG/1 ML) INJ IV PRN (20:00)
[2017-03-06] MEDS ORDERED: KETOROLAC 30 MG INJ IV PRN (20:00)
[2017-03-06] MEDS ORDERED: ONDANSETRON 4 MG INJ IV PRN (20:00)
[2017-03-06] MEDS ORDERED: FENTAnyl 2MCG/ML-ROPIV 0.2% 100 ML BAG EPI SCH (20:00)
[2017-03-06] MEDS ORDERED: NALOXONE (0.4 MG/ML) INJ IV PRN (20:00)
[2017-03-06] MEDS ORDERED: TRIMETHOBENZAMIDE 100 MG/ML VIAL IM PRN (20:00)
[2017-03-06] MEDS ORDERED: CITRIC ACID/NA CITRATE 30 ML CUP PO ONE (20:00)
[2017-03-06] MEDS ORDERED: morphine 2 MG INJ IV PRN (20:00)
[2017-03-07] MEDS ORDERED: LACTATED RINGER'S 1,000 ML IV* SCH (02:43)
--- NOTE | 2017-03-07 02:43 | LDN ---
Date/Time of Note Date/Time of Note DATE: 03/07/17 TIME: 02:40 Delivery Summary I was called to attend the delivery due to maternal urge to push. Patient had been managed during intrapartum course by Dr. Marcus. Placenta Delivered: Spontaneously Meconium: none Episiotomy: No Perineal laceration: 2 Laceration repair: second degree perineal laceration repaired using 2-0 chromic Anesthesia type: Epidural Sponge & Needle done & correct: Yes All needle counts correct: Yes Any foreign bodies felt in the: No Problems: Delivery Information Sex Infant Sex: female Apgars 1 Minute: 8 5 Minute: 9 Suctioning Nose & mouth suctioned at dianna: Yes Delee suction performed: Yes Umbilical Cord Cord presentations: no nuchal cord Cord Blood was obtained: Yes Mother & Baby Disposition Disposition Compound presentation noted at delivery, baby;s right hand with vertex. placenta delivered complete and intact Mom & Baby to Maternity; Good: Yes TUYET CHAKRABORTY MD Mar 07, 2017 02:43
[2017-03-07] MEDS ORDERED: DIPHENHYDRAMINE 25 MG CAP PO PRN (03:00)
[2017-03-07] MEDS ORDERED: METHYLERGONOVINE 0.2 MG TAB PO PRN (03:00)
[2017-03-07] MEDS ORDERED: MISOPROSTOL 200 MCG TAB PR PRN (03:00)
[2017-03-07] MEDS ORDERED: morphine 4 MG/ML VIAL IV PRN (03:00)
[2017-03-07] MEDS ORDERED: WITCH HAZEL/GLYCERIN PAD PR PRN (03:00)
[2017-03-07] MEDS ORDERED: ONDANSETRON 4 MG INJ IV PRN (03:00)
[2017-03-07] MEDS ORDERED: ZOLPIDEM 5 MG TAB PO PRN (03:00)
[2017-03-07] MEDS ORDERED: CARBOPROST 250 MCG INJ IM PRN (03:00)
[2017-03-07] MEDS ORDERED: OXYTOCIN 30 UNITS/LR 500 ML IV PRN (03:00)
[2017-03-07] MEDS ORDERED: METHYLERGONOVINE 0.2 MG INJ IM PRN (03:00)
[2017-03-07] MEDS: ACETAMINOPHEN 325 MG TAB PO PRN ×4 (03:39→21:42)
[2017-03-07 04:15] VITALS: BP 130/85; PULSE 79; RESP 18
[2017-03-07] MEDS: LANOLIN 7 GM TUBE TOP PRN (05:31)
[2017-03-07] MEDS: IBUPROFEN 600 MG TAB PO SCH ×3 (05:31→17:58)
[2017-03-07] MEDS ORDERED: HYDROCODONE/APAP (5/325) TAB PO PRN (07:52)
[2017-03-07 08:00] VITALS: BP 96/58; PULSE 83; RESP 18
[2017-03-07] MEDS: PRENATAL VITAMIN PO SCH (08:57)
[2017-03-07] MEDS: SENNA/DOCUSATE NA (8.6MG/50MG) TAB PO SCH ×2 (08:57→21:42)
[2017-03-07] MEDS ORDERED: BENZOCAINE 20% 56 ML SPRAY TOP PRN (09:00)
[2017-03-07 10:01] LABS: HEMATOCRIT 25.1 % (37.0-47.0); HEMOGLOBIN 8.1 g/dl (12.0-16.0)
[2017-03-07] MEDS: FERROUS GLUCONATE (EC) 325 MG TAB PO SCH ×2 (12:29→21:43)
[2017-03-07 16:00] VITALS: BP 95/59; PULSE 75; RESP 18
[2017-03-07 20:15] VITALS: BP 119/68; PULSE 82; RESP 18
[2017-03-08] MEDS: IBUPROFEN 600 MG TAB PO SCH ×4 (00:11→18:07)
[2017-03-08 04:30] VITALS: BP 99/69; PULSE 68; RESP 18
[2017-03-08 08:00] VITALS: BP 108/55; PULSE 72; RESP 18
[2017-03-08] MEDS: FERROUS GLUCONATE (EC) 325 MG TAB PO SCH ×2 (09:51→20:59)
[2017-03-08] MEDS: SENNA/DOCUSATE NA (8.6MG/50MG) TAB PO SCH ×2 (09:51→20:59)
[2017-03-08] MEDS: PRENATAL VITAMIN PO SCH (09:51)
--- NOTE | 2017-03-08 12:20 | QN ---
Documentation Comment PPD#1 is stable afebrile No Vb +BM +voids Vs Stable Gen NAD Abd soft NT ND Genitalia No blood at perinium --->discharge plan tomorrow -->ambulation THERON MOHAN M.D. Mar 08, 2017 12:20
[2017-03-08 16:00] VITALS: BP 116/70; PULSE 72; RESP 18
[2017-03-08] MEDS: LANOLIN 7 GM TUBE TOP PRN (20:03)
[2017-03-08 20:20] VITALS: BP 128/80; PULSE 80; RESP 18
[2017-03-08] MEDS: HYDROCODONE/APAP (5/325) TAB PO PRN (20:59)
[2017-03-09] MEDS: IBUPROFEN 600 MG TAB PO SCH ×3 (00:30→11:55)
[2017-03-09] MEDS: HYDROCODONE/APAP (5/325) TAB PO PRN (03:22)
[2017-03-09 04:05] VITALS: BP 130/69; PULSE 62; RESP 18
[2017-03-09 09:35] VITALS: BP 105/61; PULSE 74; RESP 18
[2017-03-09] MEDS: PRENATAL VITAMIN PO SCH (09:35)
[2017-03-09] MEDS: SENNA/DOCUSATE NA (8.6MG/50MG) TAB PO SCH (09:35)
[2017-03-09] MEDS: FERROUS GLUCONATE (EC) 325 MG TAB PO SCH (09:35)
--- NOTE | 2017-03-09 15:37 | PD.PPDC ---
ONLINE MARKETING MANAGER Discharge Instruction Condition Patient Condition: Good Diet Diet: Resume Regular Diet Activity/Restrictions Activity: Normal Activity May Shower Restrictions: No Sexual Activity Nothing in the Vagina No [place] No Tampons, douche Follow-up Follow-up with Physician: 6, Week/Weeks Return to clinic for MATERIAL HANDLER Instructions: Fever greater than 101 Chills Worsening abdominal pain Excessive Vaginal Bleeding OB Instructions: Breast Tenderness Depression ELVIS RAMSAY MD Mar 09, 2017 15:37
--- NOTE | 2017-03-09 15:39 | DS ---
Date/Time of Note Date/Time of Note DATE: 03/09/17 TIME: 15:38 Obstetrical Discharge Record Final Diagnosis Final Diagnosis: Term delivered Vaginal Delivery Obstetrical Delivery: Spontaneous, Laceration, Repaired Complications Induction: Yes Condition on Discharge Physical Assessment Last Vitals: T=97.4 BP 105/61 Voiding: Yes Bowel Movement: Yes Breast: Filling Fundus: Firm Episiotomy: Intact. Calf Tenderness: No Patient Condition: Good ELVIS RAMSAY MD Mar 09, 2017 15:39
[2017-03-09 16:00] VITALS: BP 138/81; PULSE 74; RESP 18
== END 2017-03-09 18:18 | disposition home or self-care (01) | DRG 775 ==
LOC: L-D 20:39 → PP1 03-07 04:04
PROVIDERS: ADMIT Specialist; ATTEND Specialist
PROC: 10E0XZZ Delivery of Products of Conception, External Approach (ICD-10-PCS; principal; 2017-03-07)
PROC: 0KQM0ZZ Repair Perineum Muscle, Open Approach (ICD-10-PCS; 2017-03-07)
DX: O26.62 Liver and biliary tract disorders in childbirth (principal); K83.1 Obstruction of bile duct; O70.1 Second degree perineal laceration during delivery; Z3A.38 38 weeks gestation of pregnancy; Z37.0 Single live birth
CPT/HCPCS: 62319; 85014; 85018; 85025; 85610; 85730; 86592; 86900; 86901; 87340; J0595; J2405; J2590; J3010; J7120

== ENCOUNTER 2017-04-16 10:56 | Emergency (ER) | payer OTHER ==
[~2017-04-16] VITALS: Wt 76.0 kg
--- NOTE | 2017-04-16 12:41 | ERD ---
ER Documentation Chief Complaint Date/Time DATE: 04/16/17 TIME: 12:[address], [place] HPI This is a 20-year-old female with no past medical history that presents to the emergency department complaining of a sore throat for the past 1 month. The patient states she was unable to get into her physician as she has a 1-month- old baby who she is currently breast-feeding. She indicates over the past 24 hours she has had a tactile fever shaking and chills. She has not taken any analgesic medication or antipyretics. She denies any abdominal pain. She denies any shortness of breath at rest or exertion. She states it hurts to swallow. She also stated she noticed lymph node swelling on the left this morning upon awakening but denies any difficulty in breathing. ROS All systems reviewed and are negative except as per history of present illness. Medications Home Meds Active Scripts Multivit/Min/Fol Ac/Iron/Pren* ( S*) 1 Tab Tab, 1 TAB PO DAILY, #100 TAB Prov:JOHN VALLES MD 07/22/16 Allergies Allergies: Coded Allergies: No Known Allergies (Verified Allergy, Mild, 03/04/17) PMhx/Soc History of Surgery: No Anesthesia Reaction: No Hx Neurological Disorder: No Hx Respiratory Disorders: No Hx Cardiac Disorders: No Hx Psychiatric Problems: No Hx Miscellaneous Medical Probl: No Hx Alcohol Use: No Hx Substance Use: No Hx Tobacco Use: No Physical Exam Vitals Vital Signs Date Time Temp Pulse Resp B/P Pulse Ox O2 Delivery O2 Flow Rate FiO2 04/16/17 10:58 98.1 76 18 139/59 99 Physical Exam Constitutional:Well-developed. Well-nourished. HEENT:Normocephalic. Atraumatic.Pupils were equal round reactive to light. Moist mucous membranes. Enlargement and erythremia of the left tonsil with tonsillar exudates on the left. Uvula midline. No pooling of secretions within the oropharynx. No trismus. No brawny induration. Neck: No nuchal rigidity. Anterior left cervical lymphadenopathy. No posterior cervical spine tenderness or step-offs. Respiratory: Not using accessory muscles of respiration.Lungs were clear to auscultation bilaterally. No rhonchi. No rales. No wheezing. Cardiovascular: Regular rate regular rhythm.No murmurs. No rubs were appreciated.S1, S2 normal. Distal pulses are palpable 2+ bilaterally. GI: Abdomen was soft. Nontender. Non Distended. No pulsatile abdominal masses or bruits. No rebound. No guarding. Bowel sounds were present and normal. Muscle skeletal: Full range of motion of both the upper and lower extremities bilaterally.Normal muscle tone.No assymetrical calf tenderness or swelling. Skin: No petechia, no purpura. No lesions on the palms or the soles of the feet. No maculopapular rash. NEURO: Patient was alert, awake, orientated x3.No facial droop. Gait observed and normal with no ataxia.Speech had regular rate and rhythm. No focal neurological deficits. Procedures/MDM This patient presented to the emergency department with 3 of the 4 center criteria suggestive of strep pharyngitis. The patient is currently breast- feeding. She was given a Bicillin injection. She stated she felt comfortable being discharged home. She was sent home with Motrin for analgesia control and antipyretics. She was also given a prescription of amoxicillin. Had no physical exam findings to suggest Viktor's angina or peritonsillar abscess. Nontoxic in appearance The patient was discharged home in fair condition. They were instructed to return to the emergency department at any time if there was any worsening of their condition. The patient stated they would follow up with their PCP in the next 24-48 hours to initiate a suitable medication regimen under the care of their PCP as well as to allow their PCP to monitor any drug reactions. The patient was discharged home with prescriptions after they gave informed consent to the new medication. They were also fully informed by myself on the adverse effects and adverse drug interactions in order to provide adequate safeguards to prevent possible adverse reactions to medications. Departure Diagnosis: Primary Impression: Strep pharyngitis Condition: Fair JOSEPH BYRNE Apr 16, 2017 12:41
[2017-04-16] MEDS ORDERED: PENICILLIN G BENZ 1.2 MIL UNIT SYG IM ONE (13:00)
[2017-04-16] MEDS ORDERED: AMOX500C2 PO (13:01)
[2017-04-16] MEDS ORDERED: IBUP800T25 PO (13:01)
== END 2017-04-16 13:10 | disposition home or self-care (01) ==
LOC: E/R 10:56
DX: J02.0 Streptococcal pharyngitis (principal)
CPT/HCPCS: 96372; J0561; Z7502

== ENCOUNTER 2017-06-10 13:33 | Emergency (ER) | payer OTHER ==
[~2017-06-10] VITALS: Ht 160 cm; Wt 70.7 kg
[~2017-06-10 13:33] MED LIST changes: +AMOX500C2 PO; +IBUP800T25 PO
[2017-06-10 13:41] VITALS: Ht 160 cm; Wt 70.7 kg
[2017-06-10 15:42] LABS: ADD UMIC YES; UR ASCORBIC ACID NEGATIVE (NEGATIVE); UR BACTERIA FEW /HPF (NONE SEEN); UR BILIRUBIN (Dip) NEGATIVE (NEGATIVE); UR BLOOD (Dip) 3+ mg/dL (NEGATIVE); UR CLARITY SLIGHTLY CLOUDY (CLEAR); UR COLOR YELLOW (YELLOW); UR GLUCOSE (Dip) NEGATIVE (NEGATIVE); UR KETONES (Dip) NEGATIVE (NEGATIVE); UR LEUKOCYTE ESTERASE (Dip) 1+ Leu/ul (NEGATIVE); UR NITRITE (Dip) NEGATIVE (NEGATIVE); UR RBC > 182 /HPF (0-5); UR SPECIFIC GRAVITY (Dip) 1.008 (1.003-1.030); UR SQUAMOUS EPITHELIAL CELL FEW /HPF (FEW); UR TOTAL PROTEIN (Dip) NEGATIVE (NEGATIVE); UR UROBILINOGEN (Dip) NEGATIVE (NEGATIVE)
[2017-06-10] MEDS ORDERED: CEPH-443 PO (15:54)
[2017-06-10] MEDS ORDERED: FLUC150T17 PO (16:10)
[2017-06-10 16:13] VITALS: BP 118/65; PULSE 75
--- NOTE | 2017-06-10 16:22 | ERD ---
ER Documentation Chief Complaint Chief Complaint painful urination on & off x2 wks, HPI 27-year-old female complains of painful urination on and off for 2 weeks with urgency and frequency. Patient describes burning with urination and she reports white vaginal discharge and itching. She denies any fevers or chills, abdominal pain. ROS All systems reviewed and are negative except as per history of present illness. Medications Home Meds Active Scripts Fluconazole* (Diflucan*) 150 Mg Tablet, 150 MG PO ONCE, #2 TAB Prov:ANGEL BYRD PA-C 06/10/17 Cephalexin* (Keflex*) 500 Mg Capsule, 500 MG PO TID for 7 Days, CAP Prov:ANGEL BYRD PA-C 06/10/17 Ibuprofen* (Motrin*) 800 Mg Tab, 800 MG PO Q6H Y for PAIN AND OR ELEVATED TEMP, #30 TAB Prov:JOSEPH BYRNE 04/16/17 Amoxicillin* (Amoxicillin*) 500 Mg Cap, 500 MG PO TID for 7 Days, CAP Prov:JOSEPH BYRNE 04/16/17 Multivit/Min/Fol Ac/Iron/Pren* ( S*) 1 Tab Tab, 1 TAB PO DAILY, #100 TAB Prov:JOHN VALLES MD 07/22/16 Allergies Allergies: Coded Allergies: No Known Allergies (Verified Allergy, Mild, 06/10/17) PMhx/Soc Medical and Surgical Hx: pt denies Medical Hx, pt denies Surgical Hx History of Surgery: No Anesthesia Reaction: No Hx Neurological Disorder: No Hx Respiratory Disorders: No Hx Cardiac Disorders: No Hx Psychiatric Problems: No Hx Miscellaneous Medical Probl: No Hx Alcohol Use: No Hx Substance Use: No Hx Tobacco Use: No Smoking Status: Never smoker Physical Exam Vitals Vital Signs Date Time Temp Pulse Resp B/P Pulse Ox O2 Delivery O2 Flow Rate FiO2 06/10/17 13:41 98.0 94 20 131/90 98 Physical Exam General: Well-developed, well-nourished. The patient appears in no acute distress. HEENT: Head is normocephalic, atraumatic. No scleral icterus. Neck: Supple. Nontender. Lungs: Clear to auscultation. Normal air movement. Heart: Regular rate and rhythm. S1 and S2 are normal. No murmurs, gallops, or rubs. Abdomen: Soft, nontender, nondistended. Bowel sounds are normoactive. Extremities: No clubbing or cyanosis. Normal pulses. Moving extremities x 4. No weakness. Neurologic: Alert and oriented 3. No focal deficits. Skin: Normal turgor. No rash or lesions. Results 24 hrs Laboratory Tests Test 06/10/17 14:26 Urine Color YELLOW Urine Clarity SLIGHTLY CLOUDY Urine pH 6.0 Urine Specific [place] 1.008 Urine Ketones NEGATIVEmg/dL Urine Nitrite NEGATIVEmg/dL Urine Bilirubin NEGATIVEmg/dL Urine Urobilinogen NEGATIVEmg/dL Urine Leukocyte Esterase 1+Leisa/ul Urine Microscopic RBC > 182/HPF Urine Microscopic WBC 65/HPF Urine Squamous Epithelial Cells FEW/HPF Urine Bacteria FEW/HPF Urine Hemoglobin 3+mg/dL Urine Glucose NEGATIVEmg/dL Urine Total Protein NEGATIVEmg/dl Urine Test NEGATIVE Procedures/MDM 27-year-old female presents with UTI symptoms, patient's urinalysis shows multiple white blood cells and positive leukocyte esterase and we treated for UTI. She also complains of vaginal white discharge with itching, will be given Diflucan, 1 dose to start today and repeat in 3 days. He does not have any clinical signs of PID, cervicitis, pyelonephritis, sepsis. Departure Diagnosis: Primary Impression: Urinary tract infection Additional Impression: Vaginitis Condition: Good Patient Instructions: Understanding Urinary Tract Infections (UTIs) Additional Instructions: Call your primary care doctor TOMORROW for an appointment during the next 1-2 days.See the doctor sooner or return here if your condition worsens before your appointment time. ANGEL BYRD PA-C Jun 10, 2017 16:22
== END 2017-06-10 16:14 | disposition home or self-care (01) ==
LOC: FTE 13:33
DX: N39.0 Urinary tract infection, site not specified (principal); N76.0 Acute vaginitis
CPT/HCPCS: 81001; 84703; 87591; 99284

== ENCOUNTER 2017-06-23 01:08 | Emergency (ER) | payer OTHER ==
[~2017-06-23] VITALS: Ht 157.5 cm; Wt 71.6 kg
[~2017-06-23 01:08] MED LIST changes: +CEPH-443 PO; +FLUC150T17 PO
[2017-06-23 01:20] VITALS: Ht 157.5 cm; Wt 71.6 kg
--- NOTE | 2017-06-23 01:45 | ERD ---
ER Documentation Chief Complaint Chief Complaint cough,chest congestion,sore throat,dysuria HPI ABD pain, green vaginal d/c , ABD pain cough x 2 weeks pt reports that she was seen and treated 2 weeks ago for UTI, and vaginosis, pt reports that symptoms have not resolved ROS All systems reviewed and are negative except as per history of present illness. Medications Home Meds Active Scripts Fluconazole* (Diflucan*) 150 Mg Tablet, 150 MG PO ONCE, #2 TAB Prov:ANGEL BYRD PA-C 06/10/17 Cephalexin* (Keflex*) 500 Mg Capsule, 500 MG PO TID for 7 Days, CAP Prov:ANGEL BYRD PA-C 06/10/17 Ibuprofen* (Motrin*) 800 Mg Tab, 800 MG PO Q6H Y for PAIN AND OR ELEVATED TEMP, #30 TAB Prov:JOSEPH BYRNE 04/16/17 Amoxicillin* (Amoxicillin*) 500 Mg Cap, 500 MG PO TID for 7 Days, CAP Prov:JOSEPH BYRNE 04/16/17 Multivit/Min/Fol Ac/Iron/Pren* ( S*) 1 Tab Tab, 1 TAB PO DAILY, #100 TAB Prov:JOHN VALLES MD 07/22/16 Allergies Allergies: Coded Allergies: No Known Allergies (Verified Allergy, Mild, 06/10/17) PMhx/Soc History of Surgery: No Anesthesia Reaction: No Hx Neurological Disorder: No Hx Respiratory Disorders: No Hx Cardiac Disorders: No Hx Psychiatric Problems: No Hx Miscellaneous Medical Probl: No Hx Alcohol Use: No Hx Substance Use: No Hx Tobacco Use: No Physical Exam Vitals Vital Signs Date Time Temp Pulse Resp B/P Pulse Ox O2 Delivery O2 Flow Rate FiO2 06/23/17 01:20 98.3 63 18 123/89 96 Physical Exam Const: Nourished well-hydrated pleasant 27-year-old female in no acute distress Eyes: Normal Conjunctiva Resp: Respirations even and unlabored, clear to auscultation bilaterally rales wheezes or rhonchi Cardio: Regular rate and rhythm, no murmurs Pelvic Exam: Face Worker present Abdomen: The gastric tenderness External Genitalia: Normal Skin Speculum: Normal vaginal mucosa, copious white mucousy non- odorous cervical discharge Bimanual: No adnexal masses or tenderness, No CMT Back: No midline or flank tenderness Neur: Awake and alert Psych: Normal Mood and Affect Results 24 hrs Laboratory Tests Test 06/23/17 02:14 Bedside Urine pH (LAB) 6.5 Bedside Urine Protein (LAB) Negative Bedside Urine Glucose (UA) Negative Bedside Urine Ketones (LAB) Negative Bedside Urine Blood Negative Bedside Urine Nitrite (LAB) Negative Bedside Urine Leukocyte Esterase (L 2+ Urinalysis positive for +2 leukocytosis, remainder of analysis is normal, findings are consistent with a urinary tract infection Preliminary read of vaginal wet mount no hyphae or evidence of fungal infection, Procedures/MDM This 27-year-old female presents to emergency department for evaluation of vaginal discharge, dysuria, and a cough. Patient reports she was seen and treated for a urinary tract infection 2 weeks ago, and a yeast infection with Diflucan, patient reports she took all medication as prescribed, does not feel that symptoms have resolved. Emergency room course includes history and physical exam, pelvic exam with abnormal findings, mucousy white discharge suggestive of a candidal infection versus bacterial infection mucosa pink, non- excoriated, diagnostic culture and fungal wet mount obtained, urinalysis positive for leukocytosis suggestive of urinary tract infection, urine will be sent for culture and sensitivity, GC and chlamydia. Preliminary read of vaginal wet mount, no hyphae plan to treat for bacterial vaginosis and urinary tract infection with Cipro 500 mg 1 tab p.o. twice daily 7 days, MetroGel 1 ampule vaginally 5 days Patient is stable with no new complaints during ER course, clinically there is no current evidence to suggest pyelonephritis, PID candidal infection or any other emergent condition appearing to require further evaluation or hospitalization. I feel the patient is stable for discharge at this time. I have discussed results, examination findings, the treatment plan with the patient and family present prior to discharge. Indications for emergent reevaluation, side effects of medication were also discussed. All questions were answered. Patient verbalizes understanding and agrees with plan of care. Departure Diagnosis: Primary Impression: Acute UTI Additional Impression: BV (bacterial vaginosis) Condition: Good Patient Instructions: Understanding Urinary Tract Infections (UTIs), Vaginal Infection: Bacterial Vaginosis Additional Instructions: Thank you for for coming to [facility] for your care today. Please ask your nurse or provider if you have questions about your care today and do not leave until all your questions have been answered. Please use any medications given as directed and follow-up with your doctor (or the doctor you were referred to) in the next 2-3 days. If you do not have a primary care doctor you may follow up at the [facility] (listed below). You may also use motrin and tylenol as needed for fever and/or pain unless instructed otherwise by your provider or nurse. Indications for more urgent follow-up have been discussed, but you may return to the Emergency Department at ANY time for any worrisome or worsening symptoms. If you have abdominal pain, please know that no test or exam you received is perfect and you should follow up within 8 hours for continued pain. If you had any imaging studies today, such as an X-Ray or CT Scan, these studies will be reviewed later by a radiologist. You will be called if there are important findings that were not identified today, so make sure the contact information you provided at registration is correct. If you received any narcotic pain control medicine today, such as Vicodin, Morphine or Dilaudid, your coordination and judgment may be affected for a number of hours. Please do not drive or operate heavy machinery, and you may want someone to assist you at home. If you were given a prescription for narcotic medication, be aware that it is very addictive- use sparingly and only if necessary. ALBERTO METZ Jun 23, 2017 01:45
[2017-06-23 02:15] LABS: URINE BLOOD (Dip) POC Negative (NEGATIVE)
[2017-06-23] MEDS ORDERED: CIPR500T4 PO (04:22)
[2017-06-23] MEDS ORDERED: METR70GE15 VAG (04:23)
[2017-06-23 04:30] VITALS: BP 113/72; PULSE 75; RESP 18; TEMP 97.4
== END 2017-06-23 04:30 | disposition home or self-care (01) ==
LOC: FTE 01:08
DX: N39.0 Urinary tract infection, site not specified (principal); N76.0 Acute vaginitis
CPT/HCPCS: 81003; 87081; 87086; 87220; 87591; Z7502; 99284

== ENCOUNTER 2017-08-15 15:04 | Emergency (ER) | END 2017-08-15 16:57 | disposition home or self-care (01) ==

== ENCOUNTER 2017-09-01 15:39 | Emergency (ER) | END 2017-09-01 19:23 | disposition home or self-care (01) ==

== ENCOUNTER 2017-11-27 11:06 | Emergency (ER) | END 2017-11-27 12:32 | disposition home or self-care (01) ==

== ENCOUNTER 2019-02-01 22:50 | Emergency (ER) | payer OTHER ==
[~2019-02-01] VITALS: Ht 157.5 cm; Wt 63.9 kg
[~2019-02-01 22:50] MED LIST changes: +AZIT250T PO; +BENZ-6 PO; +CIPR500T4 PO; +FLUC150T PO; -FLUC150T17 PO; -IBUP800T25 PO; +IBUP800T48 PO; +METR500T PO; +METR70GE15 VAG
[2019-02-01 22:56] VITALS: Ht 157.5 cm; Wt 63.9 kg
[2019-02-01] MEDS ORDERED: FLUCONAZOLE 150 MG TAB PO ONE (23:30)
[2019-02-01] MEDS ORDERED: NITR-58 PO (23:44)
--- NOTE | 2019-02-01 23:45 | ERD ---
ER Documentation Chief Complaint Chief Complaint dysuria, itching x'sa 2 weeks HPI 28-year-old female with no significant past medical history presents for dysuria and vaginal itchiness. She had vaginal itchiness and vaginal discharge a couple weeks ago which has been improving however she states that she still has some mild discharge. She has had dysuria for the past few days. The dysuria is noted to be a burning sensation. The pain is noted to be about 2 out of 10 when she urinates. There is no pain radiation. Denies fevers or chills. Denies abdominal pain, nausea, vomiting. No other modifying factors noted, no other treatments tried at home. ROS All systems reviewed and are negative except as per history of present illness. Medications Home Meds Active Scripts Nitrofurantoin Monohyd Macrocr* (Macrobid*) 100 Mg Capsr, 100 MG PO BID for UTI for 5 Days, #10 CAP Prov:LOLLY BILL DO 02/01/19 Ciprofloxacin Hcl* (Ciprofloxacin Hcl*) 500 Mg Tablet, 500 MG PO BID for 7 Days, TAB Prov:MADHAVI LAW PA-C 11/27/17 Fluconazole* (Diflucan*) 150 Mg Tablet, 150 MG PO ONCE, #1 TAB Prov:DENNY MACEC 09/01/17 Metronidazole* (Flagyl*) 500 Mg Tablet, 500 MG PO BID for 7 Days, #14 TAB Prov:DENNY MACEC 09/01/17 Benzonatate* (Tessalon Perle*) 100 Mg Capsule, 100 MG PO Q8H PRN for COUGH for 3 Days, CAP Prov:LOLLY MARTINEZ PA-C 08/15/17 Azithromycin* (Zithromax*) 250 Mg Tablet, 250 MG PO .ZPACK DIRECTED, #6 TAB TAKE 500 MG (2 TABS) THE FIRST DAY THEN 250 MG (1 TAB) DAYS 2-5 Prov:LOLLY MARTINEZ PA-C 08/15/17 Metronidazole* (Metrogel* Vaginal) 0.75% -70 Gram Gel.w.appl, 1 APPFUL VAG HS for 7 Days, TUB Prov:ISAÍAS,ALBERTO 06/23/17 Ciprofloxacin Hcl* (Ciprofloxacin Hcl*) 500 Mg Tablet, 500 MG PO BID for 7 Days, TAB Prov:ISAÍAS,ALBERTO 06/23/17 Fluconazole* (Diflucan*) 150 Mg Tablet, 150 MG PO ONCE, #2 TAB Prov:ANGEL BYRD PA-C 06/10/17 Cephalexin* (Keflex*) 500 Mg Capsule, 500 MG PO TID for 7 Days, CAP Prov:ANGEL BYRD PA-C 06/10/17 Ibuprofen* (Motrin*) 800 Mg Tab, 800 MG PO Q6H PRN for PAIN AND OR ELEVATED TEMP, #30 TAB Prov:JOSEPH BYRNE MD 04/16/17 Amoxicillin* (Amoxicillin*) 500 Mg Cap, 500 MG PO TID for 7 Days, CAP Prov:JOSEPH BYRNE MD 04/16/17 Multivit/Min/Fol Ac/Iron/Pren* ( S*) 1 Tab Tab, 1 TAB PO DAILY, #100 TAB Prov:JOHN VALLES MD 07/22/16 Allergies Allergies: Coded Allergies: No Known Allergies (Verified Allergy, Mild, 11/27/17) PMhx/Soc Medical and Surgical Hx: pt denies Medical Hx History of Surgery: Yes (APPENDECTOMY) Anesthesia Reaction: No Hx Neurological Disorder: No Hx Respiratory Disorders: No Hx Cardiac Disorders: No Hx Psychiatric Problems: No Hx Miscellaneous Medical Probl: Yes (UTI, bacterial vaginosis, vaginal yeast infections) Hx Alcohol Use: No Hx Substance Use: No Hx Tobacco Use: No Smoking Status: Never smoker FmHx Family History: No coronary disease Physical Exam Vitals Vital Signs Date Temp Pulse Resp B/P (MAP) Pulse Ox O2 O2 Flow FiO2 Time Delivery Rate 02/02/19 98.2 75 16 122/78 98 Room Air 00:02 (93) 02/01/19 98.0 70 18 126/82 98 22:56 (97) Physical Exam Const: No acute distress Cardio: Regular rate and rhythm, no murmurs Abd: Soft, non tender, non distended. Normal bowel sounds Skin: No petechiae or rashes Back: No midline or flank tenderness Ext: No cyanosis, or edema Neur: Awake and alert Psych: Normal Mood and Affect Results 24 hrs Laboratory Tests Test 02/01/19 23:17 02/01/19 23:18 POC Beta HCG, Qualitative NEGATIVE Bedside Urine pH (LAB) 5.5 Bedside Urine Protein (LAB) Negative Bedside Urine Glucose (UA) Negative Bedside Urine Ketones (LAB) Negative Bedside Urine Blood 2+ Bedside Urine Nitrite (LAB) Negative Bedside Urine Leukocyte Esterase (L 1+ Current Medications Medications Dose Sig/[place] Start Time Status Last (Trade) Ordered Route PRN Stop Time Admin Dose Reason Admin Fluconazole 150 mg ONCE ONCE 02/01/19 DC 02/01/19 (Diflucan) PO 23:30 23:45 02/01/19 23:31 Procedures/MDM Medical Decision Making: Differential diagnosis includes but not limited to bladder infection, py elonephritis, urethritis, yeast infection Patient appeared well on physical exam. ED course: Urine dip was positive for urinary tract infection Given history of vaginal discharge with patient has that has been improving, patient given a one-time dose of Diflucan in the ER for yeast infection. Prescription(s): Patient given prescription for supportive medication(s) and Macrobid for UTI Patient advised to follow up with PCP in 1-2 days. Patient advised to return to ED for new or worsening symptoms. Patient stable on discharge from the ED. Disclaimer: Inadvertent spelling and grammatical errors are likely due to EHR/dictation software use and do not reflect on the overall quality of patient care. Also, please note that the electronic time recorded on this note does not necessarily reflect the actual time of the patient encounter. Departure Diagnosis: Primary Impression: Urinary tract infection Urinary tract infection type: acute cystitis Hematuria presence: without hematuria Qualified Codes: N30.00 - Acute cystitis without hematuria Additional Impression: Yeast infection Condition: Fair Patient Instructions: Understanding Urinary Tract Infections (UTIs) Referrals: [facility] YOU HAVE RECEIVED A MEDICAL SCREENING EXAM AND THE RESULTS INDICATE THAT YOU DO NOT HAVE A CONDITION THAT REQUIRES URGENT TREATMENT IN THE EMERGENCY DEPARTMENT. FURTHER EVALUATION AND TREATMENT OF YOUR CONDITION CAN WAIT UNTIL YOU ARE SEEN IN YOUR DOCTORS OFFICE WITHIN THE NEXT 1-2 DAYS. IT IS YOUR RESPONSIBILITY TO MAKE AN APPOINTMENT FOR FOLOW-UP CARE. IF YOU HAVE A PRIMARY DOCTOR --you should call your primary doctor and schedule an appointment IF YOU DO NOT HAVE A PRIMARY DOCTOR YOU CAN CALL OUR PHYSICIAN REFERRAL HOTLINE AT IF YOU CAN NOT AFFORD TO SEE A PHYSICIAN YOU CAN CHOSE FROM THE FOLLOWING [facility] [address] [facility]. [facility] [address] [facility] [facility] [facility] [address] [facility] [address] [facility] [address] [facility]. [facility] [address] Additional Instructions: Call your primary care doctor TOMORROW for an appointment during the next 1-2 days.See the doctor sooner or return here if your condition worsens before your appointment time. LOLLY BILL DO Feb 01, 2019 23:45
[2019-02-02 00:02] VITALS: BP 122/78; PULSE 75; RESP 16
== END 2019-02-02 00:04 | disposition home or self-care (01) ==
LOC: FTE 22:50
DX: N30.00 Acute cystitis without hematuria (principal); B37.9 Candidiasis, unspecified
CPT/HCPCS: 81003; 81025; Z7502; Z7610; 99283